=== PATIENT | female | born 1975 | race Caucasian/White ===

== ENCOUNTER 2017-12-02 23:06 | Inpatient (IN) | payer OTHER ==
[~2017-12-02] VITALS: Ht 165.1 cm; Wt 110.7 kg
[~2017-12-02 23:06] MED LIST: ASPI325T8 PO; CARV3.122 PO; CLOP75TA PO; OMEP40CA5 PO; PARO40TA3 PO; QUET400T4 PO
--- NOTE | 2017-12-02 23:44 | EKG ---
[address] [address] Test Date: 2017-12-02 Test Time: 23:41:47 Pat Name: TRA CARBAJAL Department: Room: Gender: F Personnel Monitor: : 1975 Requested By: BALJINDER GOODE Order Number: [id number] Reading MD: Elieser Morales MD Measurements Intervals [place] Rate: 78 P: 48 [place]: 134 QRS: 31 QRSD: 88 T: 58 QT: 358 QTc: 411 Interpretive Statements SINUS RHYTHM Electronically Signed On 12-05-2017 12:07:39 CDT by Elieser Morales MD
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
[2017-12-03] MEDS ORDERED: IV NORMAL SALINE 1,000ML 1,000 ML IV ONE
[2017-12-03] MEDS ORDERED: FAMOTIDINE 20 MG/2 ML VIAL IVP ONE
[2017-12-03] MEDS ORDERED: ONDANSETRON PF 4 MG/2 ML VIAL. IV ONE
[2017-12-03] MEDS ORDERED: DEXAMETHASONE SOD PHOS 10 MG/ML VIAL IV ONE (00:45)
[2017-12-03 00:53] LABS: BARBITURATES NEG (NEG); BENZODIAZEPINES POS (NEG); CANNABINOIDS POS (NEG); COCAINE NEG (NEG); METHADONE NEG (NEG); OPIATES NEG (NEG); PHENCYCLIDINE NEG (NEG)
[2017-12-03 00:54] LABS: BASO # 0.1 x10^3/uL (0.0-0.2); BASO % 1 % (0-3); EOS # 0.2 x10^3/uL (0.0-0.7); EOS % 2 % (0-3); HEMATOCRIT 45.1 % (36.0-47.0); HEMOGLOBIN 15.3 g/dL (12.0-15.5); LYMPH # 4.4 x10^3/uL (1.0-4.8); LYMPH % 38 % (24-48); MEAN CORPUSCULAR HEMOGLOBIN 30 pg (25-35); MEAN CORPUSCULAR HGB CONC 34 g/dL (31-37); MEAN CORPUSCULAR VOLUME 88 fL (79-100); MONO # 0.9 x10^3/uL (0.0-1.1); MONO % 8 % (0-9); NEUT # 5.8 x10^3uL (1.8-7.7); NEUT % 51 % (31-73); PLATELET COUNT 420 x10^3/uL (140-400); RED BLOOD COUNT 5.15 x10^6/uL (3.50-5.40); RED CELL DISTRIBUTION WIDTH 14.5 % (11.5-14.5); WHITE BLOOD COUNT 11.4 x10^3/uL (4.0-11.0)
[2017-12-03] MEDS ORDERED: NICOTINE 21MG PATCH. TD ONE (01:00)
[2017-12-03 01:06] LABS: AMPHETAMINE/METHAMPHETAMINE NEG (NEG)
[2017-12-03 01:10] LABS: ACETAMIN < 2 mcg/mL (10-30); ETHANOL < 10 mg/dL (0-10); SALIC 5.6 mg/dL (2.8-20.0)
[2017-12-03 01:11] LABS: BILIRUBIN,URINE NEG (NEG); CLARITY,URINE CLEAR; COLOR,URINE STRAW; GLUCOSE,URINE NEG (NEG); NITRITE,URINE NEG (NEG); UROBILINOGEN,URINE 0.2 mg/dL (0.2 mg/dL)
[2017-12-03 01:12] LABS: BACTERIA,URINE FEW /HPF (0-FEW); RBC,URINE RARE /HPF (0-2); SQUAMOUS EPITHELIAL CELL,UR FEW /LPF
[2017-12-03 01:13] LABS: ALBUMIN 3.6 g/dL (3.4-5.0); ALBUMIN/GLOBULIN RATIO 1.1 (1.0-1.7); CALCIUM 9.4 mg/dL (8.5-10.1); CREATININE 0.7 mg/dL (0.6-1.0); GFR 90.9; MAGNESIUM 1.9 mg/dL (1.8-2.4); POTASSIUM 4.2 mmol/L (3.5-5.1); TOTAL BILIRUBIN 0.1 mg/dL (0.2-1.0); TOTAL PROTEIN 6.8 g/dL (6.4-8.2)
[2017-12-03] MEDS ORDERED: DIVA500T2 PO (03:12)
[2017-12-03] MEDS ORDERED: SERT100T PO (03:12)
[2017-12-03] MEDS ORDERED: BUSP30TA PO (03:12)
[2017-12-03] MEDS ORDERED: ONDANSETRON PF 4 MG/2 ML VIAL. IV PRN ×2 (06:00→13:45)
[2017-12-03] MEDS ORDERED: ACETAMINOPHEN 325 MG TABLET PO PRN (06:00)
[2017-12-03] MEDS: HALOPERIDOL LACT 5 MG/ML VIAL. IVP PRN ×3 (08:42→18:37)
[2017-12-03 09:33] VITALS: BP 147/66
[2017-12-03 14:16] VITALS: BP 117/76
[2017-12-03] MEDS: MORPHINE SULFATE 4 MG/ML DISP.SYRIN. IV PRN ×2 (14:24→18:25)
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
[2017-12-03] MEDS: NICOTINE 21MG PATCH. TD SCH (15:00)
[2017-12-03 19:24] VITALS: BP 100/61
[2017-12-03] MEDS: busPIRone 15 MG TABLET. PO SCH (20:42)
[2017-12-03] MEDS: DIVALPROEX ER 500 MG TAB.ER.24H PO SCH (20:43)
--- NOTE | 2017-12-03 21:03 | PDOC ---
Exam Note: Jonathan Note: Please also refer to the separate dictated note~for this date of service dictated separately.~Patient seen individually. Discussed the patient with Nursing staff reviewed the chart.~Reviewed interim history and current functioning. Reviewed vital signs,~Labs/ Radiology~and current medications noted below. Continue current treatment with the changes noted in the dictated addendum note Assessment: Vital Signs: Vital Signs Date Time Temp Pulse Resp B/P (MAP) Pulse Ox O2 Delivery O2 Flow Rate FiO2 12/03/17 19:24 98.2 73 18 100/61 (74) 97 Room Air I&O Intake and Output 12/03/17 07:00 Intake Total 1000 ml Balance 1000 ml IV Total 1000 ml Labs: Laboratory Tests Test 12/02/17 23:59 White Blood Count 11.4 x10^3/uL (4.0-11.0) H Red Blood Count 5.15 x10^6/uL (3.50-5.40) Hemoglobin 15.3 g/dL (12.0-15.5) Hematocrit 45.1 % (36.0-47.0) Mean Corpuscular Volume 88 fL (79-100) Mean Corpuscular Hemoglobin 30 pg (25-35) Mean Corpuscular Hemoglobin Concent 34 g/dL (31-37) Red Cell Distribution Width 14.5 % (11.5-14.5) Platelet Count 420 x10^3/uL (140-400) H Neutrophils (%) (Auto) 51 % (31-73) Lymphocytes (%) (Auto) 38 % (24-48) Monocytes (%) (Auto) 8 % (0-9) Eosinophils (%) (Auto) 2 % (0-3) Basophils (%) (Auto) 1 % (0-3) Neutrophils # (Auto) 5.8 x10^3uL (1.8-7.7) Lymphocytes # (Auto) 4.4 x10^3/uL (1.0-4.8) Monocytes # (Auto) 0.9 x10^3/uL (0.0-1.1) Eosinophils # (Auto) 0.2 x10^3/uL (0.0-0.7) Basophils # (Auto) 0.1 x10^3/uL (0.0-0.2) Urine Collection Type Unknown Urine Color Straw Urine Clarity Clear Urine pH 6.0 Urine Specific [place] 1.015 Urine Protein Neg (NEG-TRACE) Urine Glucose (UA) Neg mg/dL (NEG) Urine Ketones (Stick) Neg mg/dL (NEG) Urine Blood Neg (NEG) Urine Nitrite Neg (NEG) Urine Bilirubin Neg (NEG) Urine Urobilinogen Dipstick 0.2 mg/dL (0.2 mg/dL) Urine Leukocyte Esterase Neg (NEG) Urine RBC Rare /HPF (0-2) Urine WBC 1-4 /HPF (0-4) Urine Squamous Epithelial Cells Few /LPF Urine Transitional Epithelial Cells Occ /LPF Urine Renal Epithelial Cells Occ /LPF Urine Bacteria Few /HPF (0-FEW) Sodium Level 139 mmol/L (136-145) Potassium Level 4.2 mmol/L (3.5-5.1) Chloride Level 103 mmol/L (98-107) Carbon Dioxide Level 29 mmol/L (21-32) Anion Gap 7 (6-14) Blood Urea Nitrogen 18 mg/dL (7-20) Creatinine 0.7 mg/dL (0.6-1.0) Estimated GFR (Cockcroft-Gault) 90.9 BUN/Creatinine Ratio 26 (6-20) H Glucose Level 90 mg/dL (70-99) Calcium Level 9.4 mg/dL (8.5-10.1) Magnesium Level 1.9 mg/dL (1.8-2.4) Total Bilirubin 0.1 mg/dL (0.2-1.0) L Aspartate Amino Transferase (AST) 27 U/L (15-37) Alanine Aminotransferase (ALT) 29 U/L (14-59) Alkaline Phosphatase 93 U/L (46-116) Total Protein 6.8 g/dL (6.4-8.2) Albumin 3.6 g/dL (3.4-5.0) Albumin/Globulin Ratio 1.1 (1.0-1.7) Salicylates Level 5.6 mg/dL (2.8-20.0) Salicylate Last Dose Date 02/11/11 Salicylate Last Dose Time 1111 Urine Opiates Screen Neg (NEG) Urine Methadone Screen Neg (NEG) Acetaminophen Level < 2 mcg/mL (10-30) L Acetaminophen Last Dose Date 02/11/11 Acetaminophen Last Dose Time 1111 Urine Barbiturates Neg (NEG) Urine Phencyclidine Screen Neg (NEG) Urine Amphetamine/Methamphetamine Neg (NEG) Urine Benzodiazepines Screen Pos (NEG) Urine Cocaine Screen Neg (NEG) Urine Cannabinoids Screen Pos (NEG) Ethyl Alcohol Level < 10 mg/dL (0-10) Urine Ethyl Alcohol Neg (NEG) Current Medications: Meds: Current Medications Ondansetron HCl (Zofran) 4 mg 1X ONCE IV Last administered on 12/03/17at 00:37; Start 12/03/17 at 00:00; Stop 12/03/17 at 00:01; Status DC Famotidine (Pepcid Vial) 20 mg 1X ONCE IVP Last administered on 12/03/17at 00:36 ; Start 12/03/17 at 00:00; Stop 12/03/17 at 00:01; Status DC Sodium Chloride 1,000 ml @ 1,000 mls/hr 1X ONCE IV Last administered on at 00:36; Start 12/03/17 at 00:00; Stop 12/03/17 at 00:59; Status DC Dexamethasone Sodium Phosphate (Decadron) 10 mg 1X ONCE IV Last administered on 12/03/17at 00:36; Start 12/03/17 at 00:45; Stop 12/03/17 at 00:46; Status DC Nicotine (Nicoderm Cq 21mg) 1 patch 1X ONCE TD Last administered on 12/03/17at 00:46; Start 12/03/17 at 01:00; Stop 12/03/17 at 01:01; Status DC Ondansetron HCl (Zofran) 4 mg PRN Q4HRS PRN IV NAUSEA/VOMITING Last administered on 12/03/17at 14:23; Start 12/03/17 at 06:00; Stop 12/04/17 at 05:59 Acetaminophen (Tylenol) 650 mg PRN Q4HRS PRN PO FEVER; Start 12/03/17 at 06:00; Stop 12/04/17 at 05:59 Haloperidol Lactate (Haldol) 5 mg PRN Q4HRS PRN IVP AGITATION Last administered on 12/03/17at 18:37; Start 12/03/17 at 08:30 Morphine Sulfate (Morphine 4mg Syringe) 4 mg PRN Q4HRS PRN IV PAIN Last administered on 12/03/17at 18:25; Start 12/03/17 at 13:45 Ondansetron HCl (Zofran) 4 mg PRN Q4HRS PRN IV NAUSEA/VOMITING; Start 12/03/17 at 13:45 Buspirone HCl (Buspar) 15 mg BID PO Last administered on 12/03/17at 20:42; Start 12/03/17 at 21:00 Divalproex Sodium (Depakote Er) 500 mg BID PO Last administered on 12/03/17at 20: 43; Start 12/03/17 at 21:00 Divalproex Sodium (Depakote Er) 250 mg DAILY@1200 PO ; Start 12/04/17 at 12:00 Nicotine (Nicoderm Cq 21mg) 1 patch DAILY TD Last administered on 12/03/17at 15: 00; Start 12/03/17 at 15:00 Active Scripts Active Reported Zoloft (Sertraline Hcl) 100 Mg Tablet 100 Mg PO DAILY Depakote (Divalproex Sodium) 500 Mg Tablet.dr 250 Mg PO Buspirone Hcl 30 Mg Tablet 25 Mg PO Carvedilol 3.125 Mg Tablet 3.125 Mg PO BIDWMEALS Paroxetine Hcl 40 Mg Tablet 40 Mg PO DAILY Omeprazole 40 Mg Capsule.dr 40 Mg PO Seroquel (Quetiapine Fumarate) 400 Mg Tablet 800 Mg PO BID Aspirin 325 Mg Tablet 325 Mg PO DAILY Clopidogrel (Clopidogrel Bisulfate) 75 Mg Tablet 75 Mg PO DAILY I have reviewed the current psychotropics carefully including drug interactions. Risk benefit ratio favors no change other than as noted in my dictated progress note. Diagnosis: Problems: (1) Major depressive disorder, recurrent episode (2) Post traumatic stress disorder SHRUTI AZUL MD Dec 03, 2017 21:03
[2017-12-03] MEDS: QUEtiapine 100 MG TABLET. PO SCH (21:50)
[2017-12-03 22:04] VITALS: BP 92/58
--- NOTE | 2017-12-04 01:09 | CONS ---
DATE OF CONSULTATION: 12/03/2017 PSYCHIATRIC CONSULTATION This note covers elements not covered in my initial note of 12/03/2017. IDENTIFYING DATA: The patient is a 42-year-old female seen in bed 124, [facility], for a psychiatric consult requested by Dr. Calvert after the patient was admitted via the Emergency Room with opiate withdrawal symptoms, wanting either methadone or Suboxone and had made suicidal statements including a plan to lock herself in a car and inhale the exhaust fumes. She additionally has had a significant past history of suicide attempts, once by hanging last year following which she was at [facility] and 2 years ago by an overdose on medications. She has been treated for diagnosis of bipolar disorder, PTSD, and dissociative disorder at the [facility] in [place]. Given all of this, she had a tele psychiatry consult that recommended inpatient psychiatric hospitalization, but no beds were available and she was admitted to the medical floor for observation while awaiting placement for inpatient psychiatric stay. CHIEF COMPLAINT: "I don't need to go to the hospital. I had talked about suicide when I came in, but I have no suicidal ideation at this time. I have just moved into the [place] in my own apartment to be close to my mother. My mother has narcissistic personality disorder, but "I will work things out." HISTORY OF PRESENT ILLNESS: Reportedly, the patient has been having a 2-year history of chronic right foot pain secondary to a prior fracture. She is scheduled to have surgery on 12/11/2017. She was taking opiates for the pain, Percocet 3 times a day for more than a month and then stopped them about 3 days ago. Since then, she has had what appeared to be opiate withdrawal symptoms including nausea, vomiting, and diarrhea. She was unable to take her psychotropic medications, which include Zoloft 100 mg a day, Seroquel 400 mg a day, Depakote ER 500 mg twice a day, BuSpar 15 mg twice a day. She states that she was extremely exhausted with all of the above and the opiate withdrawal symptoms, overwhelmed and consequently suicidal and came to the Emergency Room. She does have a history of mood swings. She denies current active suicidal ideation. PAST PSYCHIATRIC HISTORY: The patient sees Julianna Haney Ph.D. in psychotherapy at the [place] [facility] and goes to [facility] in [place] to see Kiki for her psychotropic medications. Since she fails, she was not willing to see Sohan Alejandra APRN at the [facility]. DRUG ALLERGIES: TORADOL, STATINS. CURRENT PSYCHOTROPICS: As noted above. FAMILY HISTORY: The patient states that she has 2 brothers, both have PTSD and dissociative personality disorder. Her mother is alive at 67. SOCIAL HISTORY: The patient is x 2. She has a son 27 years old and daughter, 21. She smokes a pack a day, drinks alcohol occasionally, uses marijuana. Her urine drug screen was positive for cannabinoids. She is currently disabled. MENTAL STATUS EXAMINATION: The patient was seen individually evening of 12/03/2017. She is reasonably oriented. Eye contact is good. Psychomotor activity is normal. Speech is coherent. Thought process is goal directed. She is able to give me a coherent history. Mood appears somewhat anxious. Affect is labile, mood congruent. She denies active suicidal or homicidal ideation. No clear psychotic symptoms. Attention span is short. IMPRESSION: Probable bipolar 1 disorder, mixed episode; history of major depressive disorder; anxiety disorder, unspecified; opiate withdrawal, chronic pain. Rest is as noted above. RECOMMENDATION: From a psychiatric standpoint, I believe the plan is to transfer her to inpatient psychiatric care for stabilization once she is medically stable. At this point, she is unwilling to do this. I would defer to the [facility] screen nurse since that she is a known patient at the [facility] for further disposition plans. She states that she has been on a total of 1000 mg Seroquel in the past, currently taking 400 mg a day and we will restart that together with Zoloft 100 mg a day. Maintain the Depakote at current dosage and BuSpar. Check a valproic acid level in the morning. Dr. Calvert, thank you for the opportunity to participate in your patient's care. We will follow up with you. SHRUTI AZUL MD DR: ANJELICA/maria r JOB#: [id number] / [id number]
[2017-12-04 03:17] VITALS: BP 107/67
[2017-12-04 07:27] VITALS: BP 104/70
[2017-12-04 07:50] LABS: VAL ACID 18 mcg/mL (50-100)
[2017-12-04] MEDS: DIVALPROEX ER 500 MG TAB.ER.24H PO SCH ×2 (08:58→20:45)
[2017-12-04] MEDS: NICOTINE 21MG PATCH. TD SCH (08:58)
[2017-12-04] MEDS: busPIRone 15 MG TABLET. PO SCH ×2 (08:58→20:46)
[2017-12-04] MEDS: SERTRALINE 100 MG TABLET. PO SCH (08:59)
[2017-12-04] MEDS: MORPHINE SULFATE 4 MG/ML DISP.SYRIN. IV PRN ×2 (09:01→14:50)
[2017-12-04 10:42] VITALS: BP 99/64
[2017-12-04 11:22] LABS: ALBUMIN/GLOBULIN RATIO 0.9 (1.0-1.7); CALCIUM 8.7 mg/dL (8.5-10.1); CREATININE 0.7 mg/dL (0.6-1.0); GFR 90.9; POTASSIUM 3.8 mmol/L (3.5-5.1); TOTAL BILIRUBIN 0.1 mg/dL (0.2-1.0); TOTAL PROTEIN 6.2 g/dL (6.4-8.2)
[2017-12-04 11:28] LABS: HEMATOCRIT 41.7 % (36.0-47.0); HEMOGLOBIN 13.9 g/dL (12.0-15.5); RED BLOOD COUNT 4.77 x10^6/uL (3.50-5.40); WHITE BLOOD COUNT 12.3 x10^3/uL (4.0-11.0)
--- NOTE | 2017-12-04 11:39 | PN ---
DATE: 12/03/2017 SUBJECTIVE: The patient is resting flat, sleeping comfortably, in no apparent distress. The nursing staff stated that she had an uneventful night. She has not made any remarks, took pain medication only once yesterday. She was seen by Dr. Aguust, who put her back on her Seroquel and increased her Zoloft to 100 mg and we maintained her divalproex and buspirone as before. PHYSICAL EXAMINATION: GENERAL: When I examined her this morning, she looked well and was clearly in no apparent respiratory distress. No pallor, jaundice, cyanosis, or thyromegaly. No jugular venous distension. No lower limb edema. VITAL SIGNS: Her heart rate was 79, blood pressure was 99/64, temperature was 97.9, respiratory rate was 18 and oxygen saturation was 99%. HEAD, EYES, EARS, NOSE AND THROAT: Showed normocephalic, atraumatic. NECK: Supple. HEART: Showed normal first and second sounds. No gallop, rub or murmur. CHEST: Clear to auscultation. No crepitation or rhonchi. ABDOMEN: Distended, soft, nontender. No guarding or rigidity. No organomegaly. All hernial orifice intact. Bowel sounds normal. NEUROLOGIC: She is sleepy, but arousable. All cranial nerves intact. She moves extremities without difficulty. Her intake over the last 24 hours was 1440, no output was recorded. LABORATORY DATA: Her most recent lab work showed a white cell count of 11,400, hemoglobin 15, hematocrit 45, MCV 88 and platelet count of 120,000. Her serum sodium was 139, potassium 4.2, chloride 103, bicarbonate 29, anion gap of 7, BUN 18, creatinine 0.7, estimated GFR was 91 mL per minute. Her glucose was 90, calcium was 9.4, magnesium was 1.9. Total bilirubin, AST, ALT, alkaline phosphatase were normal. Total protein was 6.8, albumin was 3.6. Her toxicology screen was positive for benzodiazepine and cannabinoids. ASSESSMENT: Probable bipolar type 1 disorder with mixed episode, history of major depressive disorder, anxiety. The patient made remarks regarding suicidal ideation. I have explained to the patient that the [facility] recommended that involuntary inpatient treatment and she can leave the hospital. I have no authority to keep her, but will definitely contact the police department to inform them about her departure. Meanwhile, we will check her lab work and also another urinalysis for possible urinary tract infection. EB VANN MD DR: PRINCESS/maria r JOB#: [id number] / [id number]
[2017-12-04] MEDS: DIVALPROEX ER 250 MG TAB.ER.24H. PO SCH (13:37)
[2017-12-04 13:56] VITALS: BP 107/71
[2017-12-04 14:01] LABS: BILIRUBIN,URINE NEG (NEG); CLARITY,URINE CLOUDY; COLOR,URINE YELLOW; GLUCOSE,URINE NEG (NEG); NITRITE,URINE POS (NEG); UROBILINOGEN,URINE 0.2 mg/dL (0.2 mg/dL)
[2017-12-04 14:02] LABS: BACTERIA,URINE MANY /HPF (0-FEW); SQUAMOUS EPITHELIAL CELL,UR MOD /LPF; WBC,URINE 20-40 /HPF (0-4)
[2017-12-04] MEDS: oxyCODONE/APAP 5/325 1 TAB TABLET PO PRN (18:28)
[2017-12-04 20:00] VITALS: BP 131/77
--- NOTE | 2017-12-04 20:29 | PDOC ---
Exam Note: Jonathan Note: Please also refer to the separate dictated note~for this date of service dictated separately.~Patient seen individually. Discussed the patient with Nursing staff reviewed the chart.~Reviewed interim history and current functioning. Reviewed vital signs,~Labs/ Radiology~and current medications noted below. Continue current treatment with the changes noted in the dictated addendum note Assessment: Vital Signs: Vital Signs Date Time Temp Pulse Resp B/P (MAP) Pulse Ox O2 Delivery O2 Flow Rate FiO2 12/04/17 18:28 20 97 12/04/17 14:50 Room Air 12/04/17 13:56 98.6 66 107/71 (83) I&O Intake and Output 12/04/17 07:00 Intake Total 1440 ml Output Total 1 ml Balance 1439 ml Intake Oral 1440 ml Output Urine Total 1 ml # Voids 1 Labs: Laboratory Tests Test 12/04/17 07:28 12/04/17 13:30 White Blood Count 12.3 x10^3/uL (4.0-11.0) H Red Blood Count 4.77 x10^6/uL (3.50-5.40) Hemoglobin 13.9 g/dL (12.0-15.5) Hematocrit 41.7 % (36.0-47.0) Mean Corpuscular Volume 88 fL (79-100) Mean Corpuscular Hemoglobin 29 pg (25-35) Mean Corpuscular Hemoglobin Concent 33 g/dL (31-37) Red Cell Distribution Width 14.0 % (11.5-14.5) Platelet Count 363 x10^3/uL (140-400) Sodium Level 142 mmol/L (136-145) Potassium Level 3.8 mmol/L (3.5-5.1) Chloride Level 108 mmol/L (98-107) H Carbon Dioxide Level 28 mmol/L (21-32) Anion Gap 6 (6-14) Blood Urea Nitrogen 11 mg/dL (7-20) Creatinine 0.7 mg/dL (0.6-1.0) Estimated GFR (Cockcroft-Gault) 90.9 BUN/Creatinine Ratio 16 (6-20) Glucose Level 85 mg/dL (70-99) Calcium Level 8.7 mg/dL (8.5-10.1) Total Bilirubin 0.1 mg/dL (0.2-1.0) L Aspartate Amino Transferase (AST) 15 U/L (15-37) Alanine Aminotransferase (ALT) 23 U/L (14-59) Alkaline Phosphatase 64 U/L (46-116) Total Protein 6.2 g/dL (6.4-8.2) L Albumin 3.0 g/dL (3.4-5.0) L Albumin/Globulin Ratio 0.9 (1.0-1.7) L Valproic Acid Level 18 mcg/mL (50-100) L Valproic Acid Last Dose Date 12/03/17 Valproic Acid Last Dose Time 2100 Urine Collection Type Unknown Urine Color Yellow Urine Clarity Cloudy Urine pH 6.0 Urine Specific [place] 1.025 Urine Protein Neg (NEG-TRACE) Urine Glucose (UA) Neg mg/dL (NEG) Urine Ketones (Stick) Neg mg/dL (NEG) Urine Blood Neg (NEG) Urine Nitrite Pos (NEG) Urine Bilirubin Neg (NEG) Urine Urobilinogen Dipstick 0.2 mg/dL (0.2 mg/dL) Urine Leukocyte Esterase Trace (NEG) Urine RBC 1-2 /HPF (0-2) Urine WBC 20-40 /HPF (0-4) Urine Squamous Epithelial Cells Mod /LPF Urine Bacteria Many /HPF (0-FEW) Urine Mucus Slight /LPF Current Medications: Meds: Current Medications Ondansetron HCl (Zofran) 4 mg 1X ONCE IV Last administered on 12/03/17at 00:37; Start 12/03/17 at 00:00; Stop 12/03/17 at 00:01; Status DC Famotidine (Pepcid Vial) 20 mg 1X ONCE IVP Last administered on 12/03/17at 00:36 ; Start 12/03/17 at 00:00; Stop 12/03/17 at 00:01; Status DC Sodium Chloride 1,000 ml @ 1,000 mls/hr 1X ONCE IV Last administered on at 00:36; Start 12/03/17 at 00:00; Stop 12/03/17 at 00:59; Status DC Dexamethasone Sodium Phosphate (Decadron) 10 mg 1X ONCE IV Last administered on 12/03/17at 00:36; Start 12/03/17 at 00:45; Stop 12/03/17 at 00:46; Status DC Nicotine (Nicoderm Cq 21mg) 1 patch 1X ONCE TD Last administered on 12/03/17at 00:46; Start 12/03/17 at 01:00; Stop 12/03/17 at 01:01; Status DC Ondansetron HCl (Zofran) 4 mg PRN Q4HRS PRN IV NAUSEA/VOMITING Last administered on 12/03/17at 14:23; Start 12/03/17 at 06:00; Stop 12/04/17 at 05:59; Status DC Acetaminophen (Tylenol) 650 mg PRN Q4HRS PRN PO FEVER; Start 12/03/17 at 06:00; Stop 12/04/17 at 05:59; Status DC Haloperidol Lactate (Haldol) 5 mg PRN Q4HRS PRN IVP AGITATION Last administered on 12/03/17at 18:37; Start 12/03/17 at 08:30 Morphine Sulfate (Morphine 4mg Syringe) 4 mg PRN Q4HRS PRN IV PAIN Last administered on 12/04/17at 14:50; Start 12/03/17 at 13:45 Ondansetron HCl (Zofran) 4 mg PRN Q4HRS PRN IV NAUSEA/VOMITING; Start 12/03/17 at 13:45 Buspirone HCl (Buspar) 15 mg BID PO Last administered on 12/04/17at 08:58; Start 12/03/17 at 21:00 Divalproex Sodium (Depakote Er) 500 mg BID PO Last administered on 12/04/17at 08: 58; Start 12/03/17 at 21:00 Divalproex Sodium (Depakote Er) 250 mg DAILY@1200 PO Last administered on at 13:37; Start 12/04/17 at 12:00 Nicotine (Nicoderm Cq 21mg) 1 patch DAILY TD Last administered on 12/04/17at 08: 58; Start 12/03/17 at 15:00 Quetiapine Fumarate (SEROquel) 400 mg QHS PO ; Start 12/04/17 at 21:00; Stop 12/04 at 21:00; Status DC Sertraline HCl (Zoloft) 100 mg DAILY PO Last administered on 12/04/17at 08:59; Start 12/04/17 at 09:00 Quetiapine Fumarate (SEROquel) 400 mg QHS PO Last administered on 12/03/17at 21: 50; Start 12/03/17 at 22:00 Oxycodone/ Acetaminophen (Percocet 5/325) 1 tab PRN Q4HRS PRN PO MODERATE PAIN Last administered on 12/04/17at 18:28; Start 12/04/17 at 18:00 Active Scripts Active Reported Zoloft (Sertraline Hcl) 100 Mg Tablet 100 Mg PO DAILY Depakote (Divalproex Sodium) 500 Mg Tablet.dr 250 Mg PO Buspirone Hcl 30 Mg Tablet 25 Mg PO Carvedilol 3.125 Mg Tablet 3.125 Mg PO BIDWMEALS Paroxetine Hcl 40 Mg Tablet 40 Mg PO DAILY Omeprazole 40 Mg Capsule.dr 40 Mg PO Seroquel (Quetiapine Fumarate) 400 Mg Tablet 800 Mg PO BID Aspirin 325 Mg Tablet 325 Mg PO DAILY Clopidogrel (Clopidogrel Bisulfate) 75 Mg Tablet 75 Mg PO DAILY I have reviewed the current psychotropics carefully including drug interactions. Risk benefit ratio favors no change other than as noted in my dictated progress note. Diagnosis: Problems: (1) Major depressive disorder, recurrent episode (2) Post traumatic stress disorder (3) Leg pain SHRUTI AZUL MD Dec 04, 2017 20:29
[2017-12-04] MEDS: QUEtiapine 100 MG TABLET. PO SCH (20:46)
[2017-12-04] MEDS ORDERED: QUEtiapine 100 MG TABLET. PO SCH (21:00)
[2017-12-05 05:31] VITALS: BP 110/68
[2017-12-05] MEDS: oxyCODONE/APAP 5/325 1 TAB TABLET PO PRN ×2 (08:14→13:54)
[2017-12-05] MEDS: SERTRALINE 100 MG TABLET. PO SCH (09:00)
[2017-12-05] MEDS: busPIRone 15 MG TABLET. PO SCH (09:00)
[2017-12-05] MEDS: DIVALPROEX ER 500 MG TAB.ER.24H PO SCH (09:00)
[2017-12-05] MEDS: NICOTINE 21MG PATCH. TD SCH (09:05)
[2017-12-05] MEDS: HALOPERIDOL LACT 5 MG/ML VIAL. IVP PRN (09:35)
[2017-12-05] MEDS: MORPHINE SULFATE 4 MG/ML DISP.SYRIN. IV PRN ×2 (10:36→15:47)
[2017-12-05] MEDS: DIVALPROEX ER 250 MG TAB.ER.24H. PO SCH (12:12)
[2017-12-05 16:50] VITALS: BP 115/82
--- NOTE | 2017-12-06 01:05 | PN ---
DATE: 12/05/2017 SUBJECTIVE: The patient is sitting comfortably in her chair in no apparent respiratory distress. She is awake, alert, continued to complain of being anxious, restless, at times agitated, was given Haldol and also complaining of pain in her left foot, for which she received her Percocet and morphine. OBJECTIVE: GENERAL: When I saw her, she looked well and was clearly in no apparent respiratory distress. No pallor, jaundice, cyanosis, or thyromegaly. No jugular venous distension. No limb edema. VITAL SIGNS: Her heart rate was 56, blood pressure was 110/68, temperature was 98, respiratory rate was 18, and oxygen saturation was 96%. HEAD, EYES, EARS, NOSE, AND THROAT: Normocephalic, atraumatic. NECK: Supple. HEART: Showed normal first and second heart sounds. No gallop, rub, or murmur. CHEST: Clear to auscultation. No crepitation or rhonchi. ABDOMEN: Distended, soft, nontender. No guarding or rigidity. No organomegaly. All hernial orifice intact. Bowel sounds normal. NEUROLOGIC: She was awake, alert, responding appropriately. She moves all extremities without difficulty. Her intake was 1414, output was recorded. LABORATORY DATA: Her lab work as of yesterday showed a white cell count 12,300, hemoglobin 13.9, hematocrit was 42, MCV 88, and platelet count 363,000. Her chemistry showed a serum sodium 142, potassium 3.8, chloride 108, bicarbonate 28, anion gap of 6, BUN 11, creatinine 0.7. Her estimated GFR was 91 mL per minute. Her glucose 85, calcium was 8.7. Total bilirubin, AST, ALT, alkaline phosphatase, total protein 6.2, albumin 3. Toxic screen was essentially positive for cannabinoids and benzodiazepine. ASSESSMENT: 1. Bipolar type 1 disorder, mixed episode. 2. History of major depressive disorder, anxiety. 3. The patient made remarks regarding suicidal ideation. She was evaluated, given the fact that she has made 2 suicidal attempts before, the [facility] recommended involuntary inpatient treatment. I explained to her that she can leave the hospital, but the moment she gets out, she will contact the police department to inform them about her departure. We did send urine for culture and sensitivity. Her urinalysis showed that the patient was positive for nitrite and mild leukocyte esterase. She has 1-2 rbc's, 20-40 wbc's, and many bacteria. The urine culture is still pending at the time of this patient. EB VANN MD DR: PRINCESS/maria r JOB#: [id number] / [id number]
--- NOTE | 2017-12-06 02:58 | PN ---
DATE: 12/04/2017 This is a late entry 12/04/2017 covers elements not covered in my initial note 12/04/2017. SUBJECTIVE: Discussed with nursing staff in the evening. The patient has had a better day. She denied suicidal ideation, but is being followed [facility] who known her longitudinally for a long period of time and arranging Psychiatric inpatient hospitalization for stabilization. She is back on her Zoloft, Seroquel, BuSpar, and Depakote. No active suicidal or homicidal ideation. Somewhat withdrawn, but otherwise well oriented. Intellect average. Insight fair. IMPRESSION: Unchanged from initial note. PLAN: No change from a psychiatric standpoint and will defer to the [facility] for further disposition plans. MAN Katarzyna AZUL MD DR: ANJELICA/maria r JOB#: [id number] / [id number] PROGRESS NOTE
--- NOTE | 2017-12-06 14:48 | DS ---
DATE OF DISCHARGE: 12/05/2017 HISTORY OF PRESENT ILLNESS: The patient is a 42-year-old female patient, who was admitted with suicidal ideation. She apparently has pain in her left ankle joint for which she was scheduled for surgery on 12/11/2017. She stated her mother was giving her opiates in the form of Percocet 3 times a day for almost a month and she stopped taking them about a week ago, and over the last 3 days, she has been having nausea, vomiting and diarrhea. She was unable to take any of her depression medications and reported that she is having thoughts of suicidal ideation, stated that she has thoughts to kill herself having been around. She did attempt to kill herself twice, for 1 by overdosing. She spent about 3 weeks at [facility] and at that time, she attempted to hang herself. She claimed that she has been in a wheelchair for a long time after she broke her foot and then she was in a walking boot and knee cast for a total of almost [address] Aleman was treating her for free; however, the [facility] refused to allow her to have operation for free. Finally, she got her insurance and she would go for surgery; unfortunately, because of her suicidal ideation, she was evaluated by the [facility] and they recommended admitting her involuntarily for admission to inpatient psychiatric stabilization at [facility] and has been here for almost 3 days, and they did evaluate her again and they basically recommended that the patient can be safe for discharge home and she was discharged home to continue on all her medication and was given a prescription for Percocet to continue until she gets her surgery on 12/11/2017. PHYSICAL EXAMINATION: GENERAL: When I examined her yesterday, she looked well and was clearly in no apparent respiratory distress. No pallor, jaundice, cyanosis, or thyromegaly. No jugular venous distension. No lower limb edema. VITAL SIGNS: Her heart rate was 70, blood pressure was 115/82, temperature was 99.2, respiratory rate 20, and oxygen saturation was 93% on room air. HEAD, EYES, EARS, NOSE AND THROAT: Showed normocephalic, atraumatic. NECK: Supple. HEART: Showed normal first and second sounds. No gallop, rub or murmur. CHEST: Clear to auscultation. No crepitation or rhonchi. ABDOMEN: Distended, soft, nontender. No guarding or rigidity. No organomegaly. All hernial orifices intact. Bowel sounds normal. NEUROLOGIC: She was awake, alert, responding appropriately. Cranial nerves intact. EXTREMITIES: She moves extremities without difficulty. She ambulates without assistance or assistive devices. Her intake was 1720, output was 1150. LABORATORY DATA: Her lab work on day of discharge showed a white cell count of 12,300, hemoglobin 14, hematocrit 42, MCV 88 and platelet count 363,000. Her serum sodium 142, potassium 3.8, chloride 108, bicarbonate 28, anion gap of 6, BUN 11, creatinine 0.7, estimated GFR was 91 mL per minute. Her glucose was 85, calcium was 8.7. Total bilirubin, AST, ALT, alkaline phosphatase are normal. Total protein was 6.2, albumin 3. Her urinalysis showed the growth of more than 100,000 colony forming units per mL of Escherichia coli. The sensitivity is still pending at the time of this dictation. Unfortunately, the cultures showed up after the patient was discharged and once we have the sensitivity, we will call her with oral antibiotic. DISCHARGE MEDICATIONS: She was discharged home to continue on following medications: Aspirin 325 mg once a day, carvedilol 3.125 mg twice a day, Plavix 75 mg once a day, omeprazole 40 mg once a day, paroxetine 40 mg once a day, sertraline 100 mg once a day. Her buspirone was increased to 15 mg twice a day and her divalproex was changed to 500 mg twice a day, quetiapine fumarate was increased to 400 mg at bedtime. FINAL DISCHARGE DIAGNOSES: Bipolar type 1 disorder, mixed episode; major depressive disorder; anxiety; suicidal ideation; urinary tract infection with growth of more than 100,000 colony forming units per mL of E. coli. EB VANN MD DR: PRINCESS/maria r JOB#: [id number] / [id number]
== END 2017-12-05 18:30 | disposition home or self-care (01) | DRG 897 ==
LOC: ER 23:06 → 1 SOUTH 12-03 07:51
PROVIDERS: ADMIT Internal Medicine; ATTEND Internal Medicine
DX: F11.23 Opioid dependence with withdrawal (principal); F31.60 Bipolar disorder, current episode mixed, unspecified; R45.851 Suicidal ideations; N39.0 Urinary tract infection, site not specified; Z88.8 Allergy status to other drugs, medicaments and biological substances; B96.20 Unspecified Escherichia coli [E. coli] as the cause of diseases classified elsewhere; E78.5 Hyperlipidemia, unspecified; F12.90 Cannabis use, unspecified, uncomplicated; M25.572 Pain in left ankle and joints of left foot; M79.671 Pain in right foot; F44.9 Dissociative and conversion disorder, unspecified; F17.210 Nicotine dependence, cigarettes, uncomplicated; F43.10 Post-traumatic stress disorder, unspecified; G89.29 Other chronic pain; I25.10 Atherosclerotic heart disease of native coronary artery without angina pectoris; Z95.5 Presence of coronary angioplasty implant and graft; Z87.01 Personal history of pneumonia (recurrent); Z91.5 Personal history of self-harm; I25.2 Old myocardial infarction
CPT/HCPCS: 36415; 80053; 80164; 80307; 81001; 83735; 85025; 85027; 87086; 93005; 96361; 96374; 96375; G0480; G6039; J1100; J1630; J2270; J2405; S0028; 82003; 99285-25; G0479; J7030

== ENCOUNTER 2019-06-07 10:27 | Emergency (ER) | payer MEDICAID, OTHER ==
[~2019-06-07] VITALS: Ht 165.1 cm; Wt 95.5 kg
[~2019-06-07 10:27] MED LIST changes: +BUSP30TA PO; -CARV3.122 PO; +CARV3.1230 PO; +DIVA500T2 PO; +OMEP40CA45 PO; -OMEP40CA5 PO; +SERT100T PO
[2019-06-07] MEDS ORDERED: IV NORMAL SALINE 1,000ML 1,000 ML IV ONE (10:45)
--- NOTE | 2019-06-07 10:55 | PHYS DOC ---
Past History Past Medical History: Anxiety, Bipolar, CAD, Depression, DE, Pneumonia, Other Additional Past Medical Histor: chronic right foot pain Past Surgical History: Other Smoking: Cigarettes Alcohol Use: None Drug Use: Benzodiazepine, Marijuana, Opiates Adult General Chief Complaint Chief Complaint: SYNCOPE HPI HPI Patient is a 44-year-old female with history of bipolar disorder as well as coronary artery disease with PCI stent placement in 2017 presents with syncope. [facility] and had been sitting for a long period time. When she thony from her chair she walked out of the office and felt lightheaded and eventually "passed out". Episode was witnessed by 2 bystanders who did notice some possible shaking She reports the bystanders witnessed her hit her chin. She does not have a history of seizure disorder nor has she had syncope in the past. She does feel that she is been experiencing some symptoms and took one of her when necessary trazodone's earlier this morning as she has been able to sleep recently. Blood pressure was 80s/40s per EMS. She denies any chest pain, palpitations, shortness of breath preceding the syncope. Currently she is asymp tomatic. She denies any history of blood clots, hemoptysis, hormone use, immobilization, recent surgeries, abdominal pain, vision changes or focal weakness. Review of Systems Review of Systems Constitutional: Denies fever or chills Eyes: Denies diplopia, vision change. HENT: Denies nasal congestion or sore throat Respiratory: Denies cough or shortness of breath Cardiovascular: Denies chest pain or palpitations GI: Denies abdominal pain, nausea, or vomiting Musculoskeletal: Denies back pain or joint pain Neurologic: Denies headache, focal weakness or sensory changes; reports syncope Complete systems were reviewed and found to be within normal limits, except as documented in this note. Current Medications Current Medications Current Medications Medications (Trade) Dose Ordered Sig/Manuel Start Time Stop Time Status Last Admin Dose Admin Sodium Chloride 1,000 ml @ 1,000 mls/hr 1X ONCE 06/07/19 10:45 06/07/19 11:44 06/07/19 10:42 1,000 MLS/HR Allergies Allergies Allergies Coded Allergies Type Severity Reaction Last Updated Verified Jctggdg-Ghl-Exi Reductase Inhibitor Allergy Intermediate 12/05/17 Yes ketorolac Allergy Intermediate 12/05/17 Yes Physical Exam Physical Exam Constitutional: Well developed, well nourished, no acute distress, non-toxic appearance HENT: Normocephalic, atraumatic, oropharynx moist without evidence of tongue biting or dental trauma Eyes: PERRL, EOMI, conjunctiva normal, no discharge Neck: Normal range of motion, no tenderness, supple Cardiovascular: Heart rate normal, regular rhythm Lungs & Thorax: Bilateral breath sounds clear to auscultation, no wheezing Abdomen: Soft, no tenderness Extremities: No tenderness, ROM intact, no edema Neurologic: Alert and oriented X 3, normal motor function, normal sensory function, no focal deficits noted, cranial nerves II through XII grossly intact bilaterally, no cerebellar dysmetria noted Psychologic: Affect normal, judgment normal EKG EKG 1039: Normal sinus rhythm with rate of 83. Normal axis. Non-pathologic q waves in lead III. no evidence of ST segment elevation or depression. NM interval normal. Radiology/Procedures Radiology/Procedures [] Course & Med Decision Making Course & Med Decision Making Pertinent Lab studies reviewed. (See chart for details) Patient is a 44-year-old female who presents following syncope at the [facility]. During the time shortly sitting for prolonged period of time when arose to standing and walked out of the office immediately felt lightheaded and eventually had witnessed syncope. She recently began a new prescription for trazodone and had taken that medication a few hours before the event. She denies any chest pain, shortness of breath, palpitations, headache, abdominal pain prior to her syncope. She did strike her chin but on physical examination, there are no signs of trauma, bruising, bleeding, tongue biting or dental trauma. She denies any neck pain and has no pain with cervical range of motion. Although bystanders did express some concern of possible jerking movements, patient has no history of seizure disorder and she is alert and oriented immediately after syncope without postictal period. Per EMS her initial blood pressure was recorded 80s over 40s on scene. The emergency department vital signs are stable, she is alert and oriented and without complaints. Currently I feel that today's syncope is most likely explained by trazodone side effect leading to orthostatic hypotension. However, will workup for additional medical etiologies of syncope. EKG shows normal sinus rhythm with appropriate rate and intervals. No signs of acute ischemia. CBC and CMP unremarkable. No leukocytosis, anemia, or electrolyte disturbances. Troponin, CK, CK-MB all negative at this time. Patient remains asymptomatic at this time. Vital signs stable with blood pressure 10 8/72. Orthostatics positive with increased heart rate and symptomatic lightheadedness. Per EMS, patient was positive for orthostatic testing on scene as well. Patient received 1 L IV fluids with interval improvement of her symptoms. Patient stable for discharge with outpatient follow-up with PCP. Discussed findings and plan with patient, who acknowledges understanding and agreement. Dragon Disclaimer Dragon Disclaimer This electronic medical record was generated, in whole or in part, using a voice recognition dictation system. Departure Departure: Impression: Primary Impression: Orthostatic hypotension Disposition: HOME, SELF-CARE Condition: IMPROVED Referrals: PCP,NO (PCP) Patient Instructions: Orthostatic Hypotension Additional Instructions: Your symptoms might be secondary to some of the medications you currently are taking. Please follow closely with your doctors to see if some adjustments of your medications may be warranted. BALJINDER GOODE DO Jun 07, 2019 10:55
[2019-06-07 11:29] LABS: CREATININE 0.8 mg/dL (0.6-1.0); GFR 77.2
[2019-06-07 11:45] LABS: ALBUMIN 3.5 g/dL (3.4-5.0); ALBUMIN/GLOBULIN RATIO 1.1 (1.0-1.7); MAGNESIUM 2.1 mg/dL (1.8-2.4); TOTAL BILIRUBIN 0.2 mg/dL (0.2-1.0); TOTAL PROTEIN 6.8 g/dL (6.4-8.2)
[2019-06-07 12:15] LABS: BASO # 0.1 x10^3/uL (0.0-0.2); BASO % 1 % (0-3); EOS # 0.1 x10^3/uL (0.0-0.7); EOS % 1 % (0-3); HEMATOCRIT 46.2 % (36.0-47.0); HEMOGLOBIN 15.4 g/dL (12.0-15.5); LYMPH # 2.1 x10^3/uL (1.0-4.8); LYMPH % 27 % (24-48); MEAN CORPUSCULAR HEMOGLOBIN 30 pg (25-35); MEAN CORPUSCULAR HGB CONC 33 g/dL (31-37); MEAN CORPUSCULAR VOLUME 88 fL (79-100); MONO # 0.5 x10^3/uL (0.0-1.1); MONO % 7 % (0-9); NEUT # 5.3 x10^3uL (1.8-7.7); NEUT % 65 % (31-73); PLATELET COUNT 454 x10^3/uL (140-400); RED BLOOD COUNT 5.23 x10^6/uL (3.50-5.40); RED CELL DISTRIBUTION WIDTH 15.3 % (11.5-14.5); WHITE BLOOD COUNT 8.1 x10^3/uL (4.0-11.0)
--- NOTE | 2019-06-07 13:31 | EKG ---
[address] [address] Test Date: 2019-06-07 Test Time: 10:39:37 Pat Name: TRA CARBAJAL Department: Room: Gender: F Deaf/Hard Of Hearing Specialist: : 1975 Requested By: BALJINDER GOODE Order Number: [id number] Reading MD: Measurements Intervals [place] Rate: 83 P: 51 TX: 136 QRS: 46 QRSD: 84 T: 54 QT: 376 QTc: 448 Interpretive Statements SINUS RHYTHM NO SPECIFIC ECG ABNORMALITIES RI6.01 No previous ECG available for comparison
[2019-06-07 13:48] LABS: BILIRUBIN,URINE NEG (NEG); CLARITY,URINE CLEAR; COLOR,URINE YELLOW; GLUCOSE,URINE NEG (NEG); NITRITE,URINE NEG (NEG); RBC,URINE OCC /HPF (0-2); UROBILINOGEN,URINE 0.2 mg/dL (0.2 mg/dL)
[2019-06-07 13:49] LABS: BACTERIA,URINE 0 /HPF (0-FEW); SQUAMOUS EPITHELIAL CELL,UR MOD /LPF
[2019-06-07 14:14] VITALS: BP 112/67
== END 2019-06-07 14:14 | disposition home or self-care (01) ==
LOC: ER 10:27
DX: I95.1 Orthostatic hypotension (principal); F41.9 Anxiety disorder, unspecified; F31.9 Bipolar disorder, unspecified; I25.10 Atherosclerotic heart disease of native coronary artery without angina pectoris; I25.2 Old myocardial infarction; F17.210 Nicotine dependence, cigarettes, uncomplicated; G89.29 Other chronic pain; Z88.8 Allergy status to other drugs, medicaments and biological substances
CPT/HCPCS: 36415; 80053; 81001; 82553; 83735; 84484; 85025; 93005; 96360; 96361; 99284-25; J7030

== ENCOUNTER 2020-07-06 15:31 | Emergency (ER) | payer MEDICAID ==
[~2020-07-06] VITALS: Ht 165.1 cm; Wt 117.0 kg
[2020-07-06] MEDS ORDERED: HYDROcodone/APAP 5/325MG 1 TAB TABLET PO ONE (17:30)
[2020-07-06] MEDS ORDERED: LORazepam 1 MG TABLET PO ONE (17:30)
[2020-07-06] MEDS ORDERED: LORazepam 1 MG TABLET ONE (17:35)
[2020-07-06] MEDS ORDERED: HYDROcodone/APAP 5/325MG 1 TAB TABLET ONE (17:35)
[2020-07-06 18:00] LABS: BASO # 0.1 x10^3/uL (0.0-0.2); BASO % 1 % (0-3); EOS # 0.3 x10^3/uL (0.0-0.7); EOS % 4 % (0-3); HEMATOCRIT 41.8 % (36.0-47.0); HEMOGLOBIN 13.8 g/dL (12.0-15.5); LYMPH # 3.8 x10^3/uL (1.0-4.8); LYMPH % 44 % (24-48); MEAN CORPUSCULAR HEMOGLOBIN 29 pg (25-35); MEAN CORPUSCULAR HGB CONC 33 g/dL (31-37); MEAN CORPUSCULAR VOLUME 88 fL (79-100); MONO # 0.9 x10^3/uL (0.0-1.1); MONO % 11 % (0-9); NEUT # 3.5 x10^3uL (1.8-7.7); NEUT % 41 % (31-73); PLATELET COUNT 377 x10^3/uL (140-400); RED BLOOD COUNT 4.76 x10^6/uL (3.50-5.40); RED CELL DISTRIBUTION WIDTH 14.1 % (11.5-14.5); WHITE BLOOD COUNT 8.6 x10^3/uL (4.0-11.0)
[2020-07-06 18:08] LABS: CALCIUM 9.4 mg/dL (8.5-10.1); CREATININE 0.9 mg/dL (0.6-1.0); GFR 67.1; POTASSIUM 4.5 mmol/L (3.5-5.1)
--- NOTE | 2020-07-06 18:13 | RAD ---
Study: XR CHEST 2V Indication: Extremity swelling. Comparison: 02/23/2014 Findings: The cardiomediastinal silhouette is within normal limits for size. Unchanged configuration of the hil a from the 2014 comparison. No confluent airspace infiltrate, pleural effusion or pneumothorax. Increased interstitial markings w ith a basilar predominance but very similar to the comparison. Impression: Basilar predominant increased interstitial markings could represent mild pulmonary edema however the appearance is essentially unchanged from the 2014 comparison. No pleural effusion and the cardiomedia stinal silhouette is within normal limits for size. Electronically signed by: AYSE CARLSON MD (07/06/2020 6:10 PM) [facility]
[2020-07-06 18:20] LABS: ALBUMIN 3.7 g/dL (3.4-5.0); MAGNESIUM 2.1 mg/dL (1.8-2.4); TOTAL BILIRUBIN 0.2 mg/dL (0.2-1.0); TOTAL PROTEIN 7.3 g/dL (6.4-8.2)
[2020-07-06 18:37] VITALS: BP 137/91
--- NOTE | 2020-07-06 18:52 | PHYS DOC ---
Past History Past Medical History: Anxiety, Bipolar, CAD, Depression, High Cholesterol, VA, Pneumonia, Other Additional Past Medical Histor: chronic right foot pain Past Surgical History: Other Additional Past Surgical Histo: stents 2017 x2, carpel tunnel, ankle pain Smoking: Cigarettes Alcohol Use: None Drug Use: Benzodiazepine, Marijuana, Opiates Adult General Chief Complaint Chief Complaint: HAND PROBLEM HPI HPI Patient is a 45-year-old female presents to the emergency department complaining of bilateral feet swelling and bilateral hand swelling with bilateral knee pain that started approximately 3 months ago and has progressively become worse. Patient states she has seen her orthopedic physician Dr. PERSAUD at [facility] and is currently being worked up in their office, patient states she is also seeing her primary care physician Dr. Yamilka Jacome at the [facility] and is being worked up for thyroid disorder. Patient states she does not have another appointment with her primary care physician until this coming Monday to review her thyroid disorder results. Patient also has noticed an increase incidence of bloody noses. Patient states she had a bloody nose yesterday that lasted for a few minutes at work. Patient states she is treating with saline nasal spray. Patient states she called her doctor today because her symptoms were becoming worse, her physician told her she was concerned about her heart and that she should come to the emergency department. Patient reports she is allergic to Toradol, the patient states her only medication at home is [id number] Tylenol. Patient states she suffers from a posttraumatic d issociative disorder. Review of Systems Review of Systems 14 body systems of review of systems have been reviewed. See HPI for pertinent positives and negative responses, otherwise all other systems are negative, nonpertinent or noncontributory. Current Medications Current Medications Current Medications Medications (Trade) Dose Ordered Sig/Manuel Start Time Stop Time Status Last Admin Dose Admin Acetaminophen/ Hydrocodone Bitart (Lortab 5/325) 1 tab STK-MED ONCE 07/06/20 17:35 07/06/20 17:35 DC Lorazepam (Ativan) 1 mg STK-MED ONCE 07/06/20 17:35 07/06/20 17:35 DC Allergies Allergies Allergies Coded Allergies Type Severity Reaction Last Updated Verified Vtxsckf-Hha-Wca Reductase Inhibitor Allergy Intermediate 12/05/17 Yes ketorolac Allergy Intermediate 12/05/17 Yes Physical Exam Physical Exam Constitutional: Well developed, well nourished, no acute distress, non-toxic appearance. Patient very anxious during physical exam, standing and walking about the room, patient has a medical service animal/dog with her. HENT: Normocephalic, atraumatic, bilateral external ears normal, oropharynx moist, no oral exudates, nose normal. No drooling, no trismus appreciated, there is a lesion on the left lateral side of her tongue that she states has been there for 2 weeks. Eyes: PERRLA, EOMI, conjunctiva normal, no discharge. Neck: Normal range of motion, no tenderness, supple, no stridor. Cardiovascular:Heart rate regular rhythm, no murmur, heart sounds S1-S2 to auscultation. Lungs & Thorax: Bilateral breath sounds clear to auscultation all lung madsen, no adventitious lung sounds appreciated. Abdomen: Bowel sounds normal, soft, no tenderness, no masses, no pulsatile masses. Skin: Warm, dry, no erythema, no rash. Back: No tenderness, no CVA tenderness. Extremities: No tenderness, no cyanosis, no clubbing, ROM intact, no edema. Full AROM/PROM of bilateral knees, no crepitus appreciated, no swelling appreciated, no deformities appreciated, no areas of ecchymosis appreciated, distal cap refill less 2 seconds, +2 dorsalis pedis/posterior tibial pulses. Neurologic: Alert and oriented X 3, normal motor function, normal sensory function, no focal deficits noted. Psychologic: Affect anxious, judgement normal, mood normal. Current Patient Data Vital Signs Vital Signs Date Time Temp Pulse Resp B/P (MAP) Pulse Ox O2 Delivery O2 Flow Rate FiO2 07/06/20 17:38 16 Room Air 07/06/20 16:48 96.8 102 158/90 (112) 100 Lab Results Laboratory Tests Test 07/06/20 17:41 White Blood Count 8.6 x10^3/uL Red Blood Count 4.76 x10^6/uL Hemoglobin 13.8 g/dL Hematocrit 41.8 % Mean Corpuscular Volume 88 fL Mean Corpuscular Hemoglobin 29 pg Mean Corpuscular Hemoglobin Concent 33 g/dL Red Cell Distribution Width 14.1 % Platelet Count 377 x10^3/uL Neutrophils (%) (Auto) 41 % Lymphocytes (%) (Auto) 44 % Monocytes (%) (Auto) 11 % Eosinophils (%) (Auto) 4 % Basophils (%) (Auto) 1 % Neutrophils # (Auto) 3.5 x10^3uL Lymphocytes # (Auto) 3.8 x10^3/uL Monocytes # (Auto) 0.9 x10^3/uL Eosinophils # (Auto) 0.3 x10^3/uL Basophils # (Auto) 0.1 x10^3/uL Sodium Level 143 mmol/L Potassium Level 4.5 mmol/L Chloride Level 107 mmol/L Carbon Dioxide Level 26 mmol/L Anion Gap 10 Blood Urea Nitrogen 24 mg/dL Creatinine 0.9 mg/dL Estimated GFR (Cockcroft-Gault) 67.1 BUN/Creatinine Ratio 27 Glucose Level 101 mg/dL Calcium Level 9.4 mg/dL Phosphorus Level 5.0 mg/dL Magnesium Level 2.1 mg/dL Total Bilirubin 0.2 mg/dL Aspartate Amino Transf (AST/SGOT) 22 U/L Alanine Aminotransferase (ALT/SGPT) 30 U/L Alkaline Phosphatase 106 U/L Troponin I Quantitative < 0.017 ng/mL MI-Nnc-C-Type Natriuretic Peptide 65 pg/mL Total Protein 7.3 g/dL Albumin 3.7 g/dL Albumin/Globulin Ratio 1.0 Current Medications Medications (Trade) Dose Ordered Sig/Manuel Route PRN Reason Start Time Stop Time Status Last Admin Dose Admin Acetaminophen/ Hydrocodone Bitart (Lortab 5/325) 2 tab 1X ONCE PO 07/06/20 17:30 07/06/20 17:35 DC 07/06/20 17:38 2 TAB Lorazepam (Ativan) 1 mg 1X ONCE PO 07/06/20 17:30 07/06/20 17:35 DC 07/06/20 17:37 1 MG Lorazepam (Ativan) 1 mg STK-MED ONCE .ROUTE 07/06/20 17:35 07/06/20 17:35 DC Acetaminophen/ Hydrocodone Bitart (Lortab 5/325) 1 tab STK-MED ONCE .ROUTE 07/06/20 17:35 07/06/20 17:35 DC Laboratory Tests Test 07/06/20 17:41 White Blood Count 8.6 x10^3/uL (4.0-11.0) Red Blood Count 4.76 x10^6/uL (3.50-5.40) Hemoglobin 13.8 g/dL (12.0-15.5) Hematocrit 41.8 % (36.0-47.0) Mean Corpuscular Volume 88 fL (79-100) Mean Corpuscular Hemoglobin 29 pg (25-35) Mean Corpuscular Hemoglobin Concent 33 g/dL (31-37) Red Cell Distribution Width 14.1 % (11.5-14.5) Platelet Count 377 x10^3/uL (140-400) Neutrophils (%) (Auto) 41 % (31-73) Lymphocytes (%) (Auto) 44 % (24-48) Monocytes (%) (Auto) 11 % (0-9) H Eosinophils (%) (Auto) 4 % (0-3) H Basophils (%) (Auto) 1 % (0-3) Neutrophils # (Auto) 3.5 x10^3uL (1.8-7.7) Lymphocytes # (Auto) 3.8 x10^3/uL (1.0-4.8) Monocytes # (Auto) 0.9 x10^3/uL (0.0-1.1) Eosinophils # (Auto) 0.3 x10^3/uL (0.0-0.7) Basophils # (Auto) 0.1 x10^3/uL (0.0-0.2) Sodium Level 143 mmol/L (136-145) Potassium Level 4.5 mmol/L (3.5-5.1) Chloride Level 107 mmol/L (98-107) Carbon Dioxide Level 26 mmol/L (21-32) Anion Gap 10 (6-14) Blood Urea Nitrogen 24 mg/dL (7-20) H Creatinine 0.9 mg/dL (0.6-1.0) Estimated GFR (Cockcroft-Gault) 67.1 BUN/Creatinine Ratio 27 (6-20) H Glucose Level 101 mg/dL (70-99) H Calcium Level 9.4 mg/dL (8.5-10.1) Phosphorus Level 5.0 mg/dL (2.6-4.7) H Magnesium Level 2.1 mg/dL (1.8-2.4) Total Bilirubin 0.2 mg/dL (0.2-1.0) Aspartate Amino Transferase (AST) 22 U/L (15-37) Alanine Aminotransferase (ALT) 30 U/L (14-59) Alkaline Phosphatase 106 U/L (46-116) Troponin I Quantitative < 0.017 ng/mL (0-0.055) PJ-Jye-U-Type Natriuretic Peptide 65 pg/mL (0-124) Total Protein 7.3 g/dL (6.4-8.2) Albumin 3.7 g/dL (3.4-5.0) Albumin/Globulin Ratio 1.0 (1.0-1.7) EKG EKG EKG performed at 1731 by house respiratory therapy staff, shows a normal sinus rhythm without ectopy with a heart rate of 77 bpm, MN interval 0.136, QTc interval 0.461, no acute STEMI, no ACS, no acute ischemia appreciated, EKG interpreted by ED attending physician Dr. Wolff. Radiology/Procedures Radiology/Procedures PATIENT: TRA CARBAJAL MACCOUNT: [id number] : 1975 LOCATION: ER AGE: 45 SEX: F EXAM STATUS: REG ER ORD. PHYSICIAN: BALJINDER HALEY APRN REASON: EXTREMITY SWELLING PROCEDURE: CHEST PA & LATERAL Study: XR CHEST 2V Indication: Extremity swelling. Comparison: 02/23/2014 Findings: The cardiomediastinal silhouette is within normal limits for size. Unchanged configuration of the keila from the 2013 comparison. No confluent airspace infiltrate, pleural effusion or pneumothorax. Increased interstitial markings with a basilar predominance but very similar to the comparison. Impression: Basilar predominant increased interstitial markings could represent mild pulmonary edema however the appearance is essentially unchanged from the 2014 co mparison. No pleural effusion and the cardiomediastinal silhouette is within normal limits for size. Electronically signed by: AYSE CARLSON MD (07/06/2020 6:10 PM) [facility] DICTATED AND SIGNED BY: AYSE CARLSON MD DATE: 07/06/201807 CC: BALJINDER HALEY APRN; PCP,UNKNOWN ~MTH0 0 Heart Score C/O Chest Pain: No Risk Factors: Risk Factors: DM, Current or recent (<one month) smoker, HTN, HLP, family history of CAD, obesity. Risk Scores: Risk Factors: DM, Current or recent (<one month) smoker, HTN, HLP, family hi story of CAD, obesity. Course & Med Decision Making Course & Med Decision Making Pertinent Labs and Imaging studies reviewed. (See chart for details) 45-year-old female, vital signs reviewed, presents emergency department concerning bilateral hands feet swelling and bilateral knee pain. Physical examination concerning for thyroid disorder versus autoimmune disorder. Patient presentation very anxious, will order cardiopulmonary work-up related to patient's primary physician concerns, patient was asking for water pill or a medication to help decrease the fluid in her body. Pending results at this t marcellus. Patient will be given to 5/325 Addis for 10/10 pain, and 1 mg p.o. Ativan for anxiety. Lab work unremarkable, EKG unremarkable, the patient did not complain of chest pain, patient's BNP was negative, troponin negative, upon reevaluation of the patient, patient appearance no longer anxious. Discussed findings with patient, discussed need for patient to see her doctor this Monday for follow-up of thyroid disorder, also discussed with patient need to follow-up for possible autoimmune disorder as directed by her primary care physician. Discussed with patient need to continue work-up with her management specialist. Will give 6 tablets of 5/325 mg hydrocodone for pain and discomfort, will also give 4 tablets of 1 mg p.o. Ativan for anxiety. Dragon Disclaimer Dragon Disclaimer This electronic medical record was generated, in whole or in part, using a voice recognition dictation system. Departure Departure: Impression: Primary Impression: Bilateral hand swelling Additional Impression: Bilateral knee pain Disposition: 01 DC HOME SELF CARE/HOMELESS Condition: GOOD Referrals: PCP,UNKNOWN (PCP) Additional Instructions: Please take medications as prescribed, please keep your appointment with your primary care doctor will this Monday, please keep your follow-up appointments with your orthopedic surgeon. Return to the emergency department for worsening symptoms or other concerns. EMERGENCY DEPARTMENT GENERAL DISCHARGE INSTRUCTIONS Thank you for coming to [facility] (ED) today and trusting us with you care. We trust that you had a positivie experience in our Emergency Department. If you wish to speak to the department management, you may call the director at [phone]. YOUR FOLLOW UP INSTRUCTIONS ARE FOLLOWS: 1. Do you have a private Doctor? If you do not have a private doctor, please ask for a resource list of physicians or clinics that may be able to assist you with follow up care. 2. The Emergency Physician has interpreted your x-rays. The X-Ray specialist will also review them. If there is a change in the findings, you will be notified in 48 hours when at all possible. 3. A lab test or culture has been done, your results will be reviewed and you will be notified if you need a change in treatment. ADDITIONAL INSTRUCTIONS AND INFORMATION: 1. Your care today has been supervised by a physician who is specially trained in emergency care. Many problems require more than one evaluation for a complete diagnosis and treatment. We recommend that you schedule your follow up appointment as recommended to ensure complete treatment of you illness or injury. If you are unable to obtain follow up care and continue to have a problem, or if your condition worsens, we recommend that you return to the ED. 2. We are not able to safely determine your condition over the phone nor are we able to give sound medical advice over the phone. For these safety reasons, if you call for medical advice we will ask you to come to the ED for further evaluation. 3. If you have any questions regarding these discharge instructions please call the ED at [phone]. SAFETY INFORMATION: In the interest of safety, wellness, and injury prevention; we encourage you to wear your sealbelt, if you smoke; quite smoking, and we encourage family to use a protective helmet for bicycling and other sporting events that present an increased risk for head injury. IF YOUR SYMPTOMS WORSEN OR NEW SYMPTOMS DEVELOP, OR YOU HAVE CONCERNS ABOUT YOUR CONDITION; OR IF YOUR CONDITION WORSENS WHILE YOU ARE WAITING FOR YOUR FOLLOW UP APPOIN TMENT; EITHER CONTACT YOUR PRIMARY CARE DOCTOR, THE PHYSICIAN WHOSE NAME AND NUMBER YOU WERE GIVEN, OR RETURN TO THE ED IMMEDIATELY. Scripts Lorazepam (ATIVAN) 1 Mg Tablet 1 TAB PO BID for anxiety MDD 2 Tablet(s) for 2 Days, #4 TAB 0 Refills Prov: BALJINDER HALEY APRN 07/06/20 Hydrocodone Bit/Acetaminophen (HYDROCODONE-APAP 5-325 ) 1 Each Tablet 1 TAB PO PRN Q6HRS PRN for PAIN, #6 TAB Prov: BALJINDER HALEY APRN 07/06/20 Problem Qualifiers Additional Impression: Bilateral knee pain Chronicity: acute Qualified Codes: M25.561 - Pain in right knee; M25.562 - Pain in left knee BALJINDER HALEY APRN Jul 06, 2020 18:52
[2020-07-06] MEDS ORDERED: LORA-254 PO (19:19)
[2020-07-06] MEDS ORDERED: HYDR-2155 PO (19:19)
--- NOTE | 2020-07-07 06:43 | EKG ---
[address] [address] Test Date: 2020-07-06 Test Time: 17:31:20 Pat Name: TRA CARBAJAL Department: Room: Gender: F Community Relations Assistant: SAMIR : 1975 Requested By: BALJINDER HALEY Order Number: [id number] Reading MD: Measurements Intervals Fields Rate: 77 P: 41 AZ: 136 QRS: 26 QRSD: 90 T: 42 QT: 366 QTc: 416 Interpretive Statements SINUS RHYTHM NORMAL ECG RI6.02 No previous ECG available for comparison
== END 2020-07-06 19:30 | disposition home or self-care (01) ==
LOC: ER 15:31
DX: R22.33 Localized swelling, mass and lump, upper limb, bilateral (principal); M25.561 Pain in right knee; M25.562 Pain in left knee; F31.9 Bipolar disorder, unspecified; E78.00 Pure hypercholesterolemia, unspecified; I25.10 Atherosclerotic heart disease of native coronary artery without angina pectoris; I25.2 Old myocardial infarction; F17.210 Nicotine dependence, cigarettes, uncomplicated; G89.29 Other chronic pain; Z95.5 Presence of coronary angioplasty implant and graft; Z91.041 Radiographic dye allergy status; Z88.6 Allergy status to analgesic agent
CPT/HCPCS: 36415; 71046; 80053; 83735; 83880; 84100; 84484; 85025; 93005; 99285-25

== ENCOUNTER → 2020-08-20 | Outpatient (CLI) | payer MEDICAID ==
[~2020-08-20] MED LIST changes: +HYDR-2155 PO; +LORA-254 PO
--- NOTE | 2020-08-20 09:52 | RAD ---
CT MAXILLOFACIAL WITHOUT CONTRAST History: Reason: LEFT MAXILLARY SINUSITIS. HX OF MASTOIDITIS / Spl. Instructions: / History: Comparison: None. Technique: Noncontrast CT imaging was performed of the maxillofacial. Coronal and sagittal reconstruc tions were performed. Exposure: One or more of the following individualized dose reduction techniques were utilized for thi s examination: 1. Automated exposure control 2. Adjustment of the mA and/or kV according to patient size 3. Use of iterative reconstruction technique. Findings: Moderate left maxillary size mucosal thickening. Fluid within the left maxillary sinus. Small polyp w ithin the right inferior maxillary sinus. Partial opacification of left anterior ethmoid air cells. T he frontal and sphenoid sinuses are clear. Opacified left ostiomeatal unit. Patent right ostiomeatal unit. Patent frontoethmoidal recesses and s phenoid ostia. Right nasal septal deviation and spurring. Mastoid air cells are clear. No acute fracture. Agger nasi cell noted. Orbits are unremarkable. Imaged intracranial contents are unremarkable. Impression: 1. Left maxillary sinus disease with opacified drainage pathway, can be seen with acute sinusitis in the appropriate clinical setting. Electronically signed by: Jamie Ohara DO (08/20/2020 9:49 AM) [id number]
== END ==
LOC: CT 08:54
PROVIDERS: ATTEND Otolaryngology
DX: J32.0 Chronic maxillary sinusitis (principal)
CPT/HCPCS: 70486

== ENCOUNTER 2020-09-28 09:54 | Emergency (ER) | payer MEDICAID ==
[~2020-09-28] VITALS: Ht 165.1 cm; Wt 113.6 kg
[~2020-09-28 09:54] MED LIST changes: -OMEP40CA45 PO; +OMEP40CA7 PO
[2020-09-28] MEDS ORDERED: IOHEXOL 300 MG/ML 75 ML VIAL. IV ONE (10:30)
--- NOTE | 2020-09-28 10:31 | PHYS DOC ---
Past History Past Medical History: Anxiety, Bipolar, CAD, Depression, High Cholesterol, [place], Pneumonia, Other Additional Past Medical Histor: chronic right foot pain Past Surgical History: Other Additional Past Surgical Histo: stents 2017 x2, carpel tunnel, ankle pain Smoking: Cigarettes Additional Smoking Information: 1/2 PACK/DAY Alcohol Use: Rarely Drug Use: Benzodiazepine, Marijuana, Opiates Adult General Chief Complaint Chief Complaint: ABDOMINAL PAIN HPI HPI Patient is a 45-year-old presenting for abdominal pain. Onset was yesterday evening without any known exposure, recent sick contact or travel. Nothing known makes better, p.o. intake makes worse. Describes pain as sharp epigastric pain that does not radiate. Symptom severity is severe and has been constant since onset. She attempted to smoke marijuana yesterday evening without significant improvement in symptoms. Denies fever, vision change, chest pain, ripping or tearing sensation in chest, shortness of breath, cough, urinary symp toms. She does admit prior history of MO with unknown amount of stents, takes 81 mg aspirin daily Review of Systems Review of Systems Fourteen body systems of review of systems have been reviewed. See HPI for pertinent positives and negative responses, other patel all other systems are negative, non-pertinent or non-contributory Current Medications Current Medications Current Medications Medications (Trade) Dose Ordered Sig/Manuel Start Time Stop Time Status Last Admin Dose Admin Fentanyl Citrate (Fentanyl 2ml Vial) 75 mcg 1X ONCE 09/28/20 10:15 09/28/20 10:18 DC Iohexol (Omnipaque 300 Mg/ml) 75 ml 1X ONCE 09/28/20 10:30 09/28/20 10:31 Allergies Allergies Allergies Coded Allergies Type Severity Reaction Last Updated Verified [id number] Reductase Inhibitor Allergy Intermediate 12/05/17 Yes ketorolac Allergy Intermediate 12/05/17 Yes Physical Exam Physical Exam Constitutional: Well developed, well nourished, anxious appearing moaning on arrival and appears in pain but is non-toxic in appearance. HENT: Normocephalic, atraumatic, bilateral external ears normal, oropharynx moist, no oral exudates, nose normal. Eyes: PERRLA, EOMI, conjunctiva normal, no discharge. Neck: Normal range of motion, no tenderness, supple, no stridor. Cardiovascular: Heart rate regular, sinus rhythm, no murmurs rubs or gallops Lungs & Thorax: Bilateral breath sounds clear to auscultation Abdomen: Bowel sounds normal, soft, epigastric tenderness with guarding present, no rebound, no masses, no pulsatile masses. Nonsurgical abdomen, no peritoneal signs Skin: Warm, dry, no erythema, no rash. Back: No tenderness, no CVA tenderness. Extremities: No tenderness, no cyanosis, no clubbing, ROM intact, no edema. Neurologic: Alert and oriented X 3, grossly normal motor & sensory function, no focal deficits noted. Psychologic: Anxious affect and mood Current Patient Data Vital Signs Vital Signs Date Time Temp Pulse Resp B/P (MAP) Pulse Ox O2 Delivery O2 Flow Rate FiO2 09/28/20 09:55 97.4 89 24 152/118 (129) 99 Room Air Lab Results Laboratory Tests Test 09/28/20 10:02 09/28/20 10:05 Urine Collection Type Unknown Urine Color Yellow Urine Clarity Clear Urine pH 8.5 Urine Specific [place] 1.020 Urine Protein Neg Urine Glucose (UA) Neg mg/dL Urine Ketones (Stick) 15 mg/dL Urine Blood Neg Urine Nitrite Neg Urine Bilirubin Neg Urine Urobilinogen Dipstick 0.2 mg/dL Urine Leukocyte Esterase Neg Urine RBC 0 /HPF Urine WBC 0 /HPF Urine Bacteria 0 /HPF Urine Test Negative Urine Opiates Screen Neg Urine Methadone Screen Neg Urine Barbiturates Neg Urine Phencyclidine Screen Neg Urine Amphetamine/Methamphetamine Pos Urine Benzodiazepines Screen Neg Urine Cocaine Screen Neg Urine Cannabinoids Screen Pos Urine Ethyl Alcohol Neg White Blood Count 14.2 x10^3/uL Red Blood Count 5.20 x10^6/uL Hemoglobin 15.1 g/dL Hematocrit 45.5 % Mean Corpuscular Volume 87 fL Mean Corpuscular Hemoglobin 29 pg Mean Corpuscular Hemoglobin Concent 33 g/dL Red Cell Distribution Width 14.2 % Platelet Count 451 x10^3/uL Neutrophils (%) (Auto) 77 % Lymphocytes (%) (Auto) 18 % Monocytes (%) (Auto) 4 % Eosinophils (%) (Auto) 0 % Basophils (%) (Auto) 1 % Neutrophils # (Auto) 10.9 x10^3uL Lymphocytes # (Auto) 2.6 x10^3/uL Monocytes # (Auto) 0.6 x10^3/uL Eosinophils # (Auto) 0.1 x10^3/uL Basophils # (Auto) 0.1 x10^3/uL Sodium Level 139 mmol/L Potassium Level 4.7 mmol/L Chloride Level 103 mmol/L Carbon Dioxide Level 21 mmol/L Anion Gap 15 Blood Urea Nitrogen 14 mg/dL Creatinine 0.7 mg/dL Estimated GFR (Cockcroft-Gault) 89.7 BUN/Creatinine Ratio 20 Glucose Level 120 mg/dL Calcium Level 9.6 mg/dL Total Bilirubin 0.5 mg/dL Aspartate Amino Transf (AST/SGOT) 18 U/L Alanine Aminotransferase (ALT/SGPT) 24 U/L Alkaline Phosphatase 136 U/L Troponin I Quantitative < 0.017 ng/mL Total Protein 7.0 g/dL Albumin 3.9 g/dL Albumin/Globulin Ratio 1.3 Lipase 78 U/L Current Medications Medications (Trade) Dose Ordered Sig/Manuel Route PRN Reason Start Time Stop Time Status Last Admin Dose Admin Fentanyl Citrate (Fentanyl 2ml Vial) 75 mcg 1X ONCE IVP 09/28/20 10:15 09/28/20 10:18 DC 09/28/20 10:34 Iohexol (Omnipaque 300 Mg/ml) 75 ml 1X ONCE IV 09/28/20 10:30 09/28/20 10:31 DC 09/28/20 10:32 EKG EKG EKG ordered and interpreted by myself at 1055 hrs. as sinus rhythm at 67 bpm, unremarkable intervals, no axis deviation, nonspecific T wave change in lead aVL otherwise no acute ischemic signs, no STEMI Radiology/Procedures Radiology/Procedures INDICATION: Reason: EPIGASTRIC PAIN, NAUSEA X 2 DAYS, NO HX OF SURGERIES / Spl. Instructions: OMNI 300 75ML IV / History: . COMPARISON: CT chest from February 2014.. TECHNIQUE: Axial CT images obtained through the abdomen and pelvis with contrast. One or more of the following individualized dose reduction techniques were utilized for this examination: 1. Automated exposure control; 2. Adjustment of the mA and/or kV according to patient size; 3. Use of iterative reconstruction technique. FINDINGS: Abdominal aorta is not aneurysmal. Multifocal plaque scattered throughout the aorta. No intrahepatic bile duct dilation. Small fat-containing umbilical hernia. No peripancreatic fluid collection. Spleen unremarkable. No hydronephrosis. Urinary bladder partially distended. Nodule at the right adrenal gland measuring up to about 12 mm. Uterus is visualized. No periappendiceal inflammatory changes. No dilated loops of bowel to suggest obstruction. Wall thickening of the distal stomach and duodenum. Degenerative changes of the spine. Small amount haziness to the fat adjacent to the urinary bladder. IMPRESSION: * Wall thickening of the distal stomach as well as the duodenum. Some possible causes would include duodenitis or duodenal ulcer with a lesion along the wall not excluded given the thickening. High density material is seen within the stomach and duodenum which could be from intraluminal content or calcifications. * Mild haziness the fat adjacent to the urinary bladder. Would correlate with symptoms to ensure that there is not a pathologic cause such as mild cystitis * Right adrenal gland nodule which is incompletely characterized. Likely benign since it was likely present in 2013. Electronically signed by: Lazaro Spring MD (09/28/2020 11:17 AM) [id number] Heart Score C/O Chest Pain: No HEART Score for Chest Pain: HEART Score for Chest Pain Response (Comments) Value History Slighlty/Non-Suspicious 0 ECG Normal 0 Age >45 - < 65 1 Risk Factors 1 or 2 Risk Factors 1 Troponin < Normal Limit 0 Total 2 Risk Factors: Risk Factors: DM, Current or recent (<one month) smoker, HTN, HLP, family history of CAD, obesity. Risk Scores: Risk Factors: DM, Current or recent (<one month) smoker, HTN, HLP, family history of CAD, obesity. Course & Med Decision Making Course & Med Decision Making ABCs unremarkable. I disclosed entirety of ER findings and discussed most likely diagnosis of unspecified upper abdominal pain. I disclosed potential diagnoses of duodenitis versus methamphetamine ingestion/use versus cannabis abuse. Patient adamantly denies any methamphetamine use or p.o. ingestion. I disclosed all findings such as concerning intraluminal contents, again denies any methamphetamine abuse whatsoever. I discussed low likelihood of any emergent or surgical issues and little indication for further diagnostic work-up in ER and/or need for hospital admission. As such, I stressed need for close outpatient follow-up to review today's ER visit and continued supportive care with new prescription for Protonix and bowel rest. Strict return precautions were also discussed at length with good understanding by patient. Patient voiced understanding and agreement with the plan. Patient knows to come back for repeat evaluation if concerning signs or symptoms present prior to outpatient follow- up. Hemodynamically stable, ambulatory and well-appearing at time of disposition. Dragon Disclaimer Dragon Disclaimer This electronic medical record was generated, in whole or in part, using a voice recognition dictation system. Departure Departure: Impression: Primary Impression: Nonspecific abdominal pain Disposition: HOME / SELF CARE / HOMELESS Condition: STABLE Referrals: PCP,NO (PCP) Patient Instructions: Abdominal Pain (Nonspecific) Additional Instructions: You have been evaluated in the Emergency Department today for abdominal pain. Your evaluation was not suggestive of any emergent condition requiring medical intervention at this time. However, some abdominal problems make take more time to appear. Therefore, it is important for you to watch for any new symptoms or worsening of your current condition. Please take prescribed proton pump inhibitor medications that should help with your stomach issues. As discussed, please contact your primary care physician immediately after your departure to review need for close outpatient follow-up for repeat evaluation and GI referral Return to the Emergency Department if you experience worsening pain, persistent fevers greater than 100.4, recurrent vomiting, blood in vomit, blood in stool, dark tarry stool, chest pain, difficulty breathing, or any other concerning symptoms. Scripts Pantoprazole Sodium (PROTONIX) 40 Mg Tablet.dr 1 TAB PO DAILY for DUODENITIS, #30 TAB 0 Refills Prov: OSIEL ROA DO 09/28/20 OSIEL ROA DO Sep 28, 2020 10:31
[2020-09-28 10:35] LABS: BASO # 0.1 x10^3/uL (0.0-0.2); BASO % 1 % (0-3); EOS # 0.1 x10^3/uL (0.0-0.7); EOS % 0 % (0-3); HEMATOCRIT 45.5 % (36.0-47.0); HEMOGLOBIN 15.1 g/dL (12.0-15.5); LYMPH # 2.6 x10^3/uL (1.0-4.8); LYMPH % 18 % (24-48); MEAN CORPUSCULAR HEMOGLOBIN 29 pg (25-35); MEAN CORPUSCULAR HGB CONC 33 g/dL (31-37); MEAN CORPUSCULAR VOLUME 87 fL (79-100); MONO # 0.6 x10^3/uL (0.0-1.1); MONO % 4 % (0-9); NEUT # 10.9 x10^3uL (1.8-7.7); NEUT % 77 % (31-73); PLATELET COUNT 451 x10^3/uL (140-400); RED CELL DISTRIBUTION WIDTH 14.2 % (11.5-14.5); WHITE BLOOD COUNT 14.2 x10^3/uL (4.0-11.0)
[2020-09-28 10:45] LABS: BARBITURATES NEG (NEG); BENZODIAZEPINES NEG (NEG); BILIRUBIN,URINE NEG (NEG); CANNABINOIDS POS (NEG); CLARITY,URINE CLEAR; COCAINE NEG (NEG); COLOR,URINE YELLOW; GLUCOSE,URINE NEG (NEG); METHADONE NEG (NEG); OPIATES NEG (NEG); PHENCYCLIDINE NEG (NEG)
[2020-09-28 10:46] LABS: ALBUMIN 3.9 g/dL (3.4-5.0); ALBUMIN/GLOBULIN RATIO 1.3 (1.0-1.7); CALCIUM 9.6 mg/dL (8.5-10.1); CREATININE 0.7 mg/dL (0.6-1.0); GFR 89.7; POTASSIUM 4.7 mmol/L (3.5-5.1); TOTAL BILIRUBIN 0.5 mg/dL (0.2-1.0)
[2020-09-28 10:46] LABS: BACTERIA,URINE 0 /HPF (0-FEW); NITRITE,URINE NEG (NEG); RBC,URINE 0 /HPF (0-2); UROBILINOGEN,URINE 0.2 mg/dL (0.2 mg/dL); WBC,URINE 0 /HPF (0-4)
[2020-09-28 10:49] LABS: AMPHETAMINE/METHAMPHETAMINE POS (NEG)
[2020-09-28 11:19] LABS: U PREG PATIENT NEGATIVE (NEG)
--- NOTE | 2020-09-28 11:20 | RAD ---
INDICATION: Reason: EPIGASTRIC PAIN, NAUSEA X 2 DAYS, NO HX OF SURGERIES / Spl. Instructions: OMNI 30 0 75ML IV / History: . COMPARISON: CT chest from February 2014.. TECHNIQUE: Axial CT images obtained through the abdomen and pelvis with contrast. One or more of the following individualized dose reduction techniques were utilized for this examinat ion: 1. Automated exposure control; 2. Adjustment of the mA and/or kV according to patient size; 3 . Use of iterative reconstruction technique. FINDINGS: Abdominal aorta is not aneurysmal. Multifocal plaque scattered throughout the aorta. No intrahepatic bile duct dilation. Small fat-containing umbilical hernia. No peripancreatic fluid collection. Spleen unremarkable. No hydronephrosis. Urinary bladder partially distended. Nodule at the right adrenal gland measuring up to about 12 mm. Uterus is visualized. No periappendiceal inflammatory changes. No dilated loops of bowel to suggest obstruction. Wall thickening of the distal stomach and duodenum. Degenerative changes of the spine. Small amount haziness to the fat adjacent to the urinary bladder. IMPRESSION: * Wall thickening of the distal stomach as well as the duodenum. Some possible causes would include duodenitis or duodenal ulcer with a lesion along the wall not excluded given the thickening. High den sity material is seen within the stomach and duodenum which could be from intraluminal content or jennifer cifications. * Mild haziness the fat adjacent to the urinary bladder. Would correlate with symptoms to ensure anuja t there is not a pathologic cause such as mild cystitis * Right adrenal gland nodule which is incompletely characterized. Likely benign since it was likely present in 2013. Electronically signed by: Lazaro Spring MD (09/28/2020 11:17 AM) [facility]
[2020-09-28 11:57] VITALS: BP 160/79
[2020-09-28] MEDS ORDERED: PANTOPRAZOLE IV 40 MG VIAL. IVP ONE (12:15)
[2020-09-28] MEDS ORDERED: PANT40TA3 PO (12:16)
--- NOTE | 2020-09-29 21:27 | EKG ---
[address] [address] Test Date: 2020-09-28 Test Time: 10:50:58 Pat Name: TRA CARBAJAL Department: Room: Gender: F [employer] Management Specialist: : [id number] Requested By: OSIEL ROA Order Number: [id number] Reading MD: Measurements Intervals [place] Rate: 67 P: 38 SD: 138 QRS: 38 QRSD: 102 T: 67 QT: 424 QTc: 451 Interpretive Statements SINUS RHYTHM QRS(T) CONTOUR ABNORMALITY CONSIDER INFERIOR MYOCARDIAL DAMAGE T ABNORMALITY IN HIGH LATERAL LEADS ABNORMAL ECG RI6.02 No previous ECG available for comparison
== END 2020-09-28 12:40 | disposition home or self-care (01) ==
LOC: ER 09:54
DX: R10.13 Epigastric pain (principal); E78.5 Hyperlipidemia, unspecified; F17.210 Nicotine dependence, cigarettes, uncomplicated; Z32.02 Encounter for pregnancy test, result negative
CPT/HCPCS: 36415; 74177; 80053; 80307; 81001; 81025; 83690; 84484; 85025; 93005; 96374; 96375; 99285; C9113; J3010; Q9967

== ENCOUNTER 2021-01-04 19:49 | Emergency (ER) | payer MEDICAID ==
[~2021-01-04] VITALS: Ht 165.1 cm; Wt 113.6 kg
[~2021-01-04 19:49] MED LIST changes: +PANT40TA3 PO
[2021-01-04 20:30] VITALS: BP 158/97
[2021-01-04] MEDS ORDERED: MUPI15CR8 TP (20:51)
[2021-01-04] MEDS ORDERED: AMOX1TAB61 PO (20:51)
--- NOTE | 2021-01-04 20:56 | PHYS DOC ---
Past History Past Medical History: Anxiety, Bipolar, CAD, Depression, High Cholesterol, [place], Pneumonia, Other Additional Past Medical Histor: chronic right foot pain Past Surgical History: Other Additional Past Surgical Histo: stents 2017 x2, carpel tunnel, ankle pain Smoking: Cigarettes Alcohol Use: Rarely Drug Use: Benzodiazepine, Marijuana, Opiates General Adult EDM: Chief Complaint: COUGH HPI: HPI: Patient is a 45-year-old female who presents to the ER for a 1 month history of facial pain, nasal congestion and nonproductive cough. Patient rates her facial pain 8 out of 10. She has been taking DayQuil, NyQuil, Tylenol, ibuprofen, nasal sprays and Robitussin without any relief in symptoms. Patient reports she is a chronic cough because she is a smoker. Patient denies shortness of breath, chest pain, sore throat, fevers, sick exposures. She is unvaccinated for COVID- 19. Review of Systems: Review of Systems: 14 body systems of the review of systems have been reviewed. See HPI for pe rtinent positive and negative responses, otherwise all other systems are negative, nonpertinent or noncontributory Allergies: Allergies: Allergies Coded Allergies Type Severity Reaction Last Updated Verified ketorolac Allergy Intermediate 12/05/17 Yes Physical Exam: PE: Constitutional: Well developed, well nourished, no acute distress, non-toxic appearance. [] HENT: Normocephalic, atraumatic, bilateral external ears normal, oropharynx moist, no oral exudates, nose normal, frontal, ethmoid and maxillary sinus tenderness with palpation. [] Eyes: PERRL, EOMI, conjunctiva normal, no discharge. [] Neck: Normal range of motion, no stridor Cardiovascular:Heart rate regular rhythm, no murmur [] Lungs & Thorax: Bilateral breath sounds clear to auscultation [] Abdomen: Bowel sounds normal, soft, no tenderness, no masses, no pulsatile masses. [] Skin: Warm, dry, no erythema, no rash. [] Back: Normal range of motion Extremities: No tenderness, no cyanosis, no clubbing, ROM intact, no edema. [] Neurologic: Alert and oriented X 3, normal motor function, normal sensory fun ction, no focal deficits noted. [] Psychologic: Affect normal, judgement normal, mood normal. [] EKG: EKG: [] Radiology/Procedures: Radiology/Procedures: [] Heart Score: C/O Chest Pain: N/A Risk Factors: Risk Factors: DM, Current or recent (<one month) smoker, HTN, HLP, family history of CAD, obesity. Risk Scores: Score 0 - 3: 2.5% MACE over next 6 weeks - Discharge Home Score 4 - 6: 20.3% MACE over next 6 weeks - Admit for Clinical Observation Score 7 - 10: 72.7% MACE over next 6 weeks - Early Invasive Strategies Course & Med Decision Making: Course & Med Decision Making Pertinent Labs and Imaging studies reviewed. (See chart for details) Patient is a 45-year-old female who presents with a 1 month history of facial pain and nasal congestion. Patient was noted to be tender with palpation to sinuses. Due to patient's nasal congestion and cough, she will be tested for COVID-19. She is instructed to self isolate until she receives these results. Patient states that she has been frequently using nasal sprays. I discussed with her the adverse effects of overusing nasal spray such as nasal mucosa irritation and perforation. Patient states that she has been applying bacitracin ointment with a Q-tip to her nose to help with the irritation and is requesting mupirocin ointment. Patient will be discharged home with an antibiotic to treat sinusitis and mupirocin ointment. Patient advised to follow-up with her primary care provider. Patient given her first dose of antibiotic in the ER. I discussed with patient all findings and diagnostic testing as well as the need to follow-up with PCP for further evaluation and treatment or return to the ER if any new or worsening symptoms. Strict return precautions were also discussed at length. Patient voiced understanding and agreement with the plan. Patient is hemodynamically stable at the time of disposition. Dragon Disclaimer: DragCartiHeal Disclaimer: This electronic medical record was generated, in whole or in part, using a voice recognition dictation system. Departure Departure: Impression: Primary Impression: Sinusitis Qualified Codes: J01.00 - Acute maxillary sinusitis, unspecified Disposition: HOME / SELF CARE / HOMELESS Condition: GOOD Referrals: PCP,NO (PCP) Patient Instructions: Sinusitis Additional Instructions: You were seen in the ER today for facial pain along with nasal congestion and a cough. You were tested for COVID-19 and will be notified of your results when they become available in approximately 2 days. Please self isolate until you receive these results. You are being diagnosed with sinusitis. You are prescribed an antibiotic and given your first dose in the ER. Please start and finish it completely. You are also being discharged home with an antibacterial ointment that you can use for your nose. As we discussed, frequent use of nasal sprays can be detrimental and cause nasal mucosa irritation and perforation. I would try to decrease your intranasal sprays and discontinue them. Follow-up w ith your primary care provider within 3 days regarding your ER visit. Please return to the ER if you develop shortness of breath, chest pain, high fevers refractory to treatment or any new or worsening concerns. EMERGENCY DEPARTMENT GENERAL DISCHARGE INSTRUCTIONS Thank you for coming to [facility] (ED) today and trusting us with you care. We trust that you had a positivie experience in our Emergency Department. If you wish to speak to the department management, you may call the director at [phone]. YOUR FOLLOW UP INSTRUCTIONS ARE FOLLOWS: 1. Do you have a private Doctor? If you do not have a private doctor, please ask for a resource list of physicians or clinics that may be able to assist you with follow up care. 2. The Emergency Physician has interpreted your x-rays. The X-Ray specialist will also review them. If there is a change in the findings, you will be notified in 48 hours when at all possible. 3. A lab test or culture has been done, your results will be reviewed and you will be notified if you need a change in treatment. ADDITIONAL INSTRUCTIONS AND INFORMATION: 1. Your care today has been supervised by a physician who is specially trained in emergency care. Many problems require more than one evaluation for a complete diagnosis and treatment. We recommend that you schedule your follow up appointment as recommended to ensure complete treatment of you illness or injury. If you are unable to obtain follow up care and continue to have a problem, or if your condition worsens, we recommend that you return to the ED. 2. We are not able to safely determine your condition over the phone nor are we able to give sound medical advice over the phone. For these safety reasons, if you call for medical advice we will ask you to come to the ED for further evaluation. 3. If you have any questions regarding these discharge instructions please call the ED at [phone]. SAFETY INFORMATION: In the interest of safety, wellness, and injury prevention; we encourage you to wear your sealbelt, if you smoke; quite smoking, and we encourage family to use a protective helmet for bicycling and other sporting events that present an increased risk for head injury. IF YOUR SYMPTOMS WORSEN OR NEW SYMPTOMS DEVELOP, OR YOU HAVE CONCERNS ABOUT YOUR CONDITION; OR IF YOUR CONDITION WORSENS WHILE YOU ARE WAITING FOR YOUR FOLLOW UP APPOINTMENT; EITHER CONTACT YOUR PRIMARY CARE DOCTOR, THE PHYSICIAN WHOSE NAME AND NUMBER YOU WERE GIVEN, OR RETURN TO THE ED IMMEDIATELY. Scripts Mupirocin Calcium (MUPIROCIN) 15 Gm Cream..g. 1 AMELIA TP BID for nasal irritation for 10 Days, #30 GM 0 Refills Prov: SHARLA BARNETT APRN 01/04/21 Amoxicillin/Potassium Clav (AUGMENTIN 875-125 TABLET) 1 Each Tablet 1 TAB PO BID for sinusitis for 10 Days, #20 TAB 0 Refills Prov: SHARLA BARNETT APRN 01/04/21 SHARLA BARNETT APRN Jan 04, 2021 20:56
[2021-01-04] MEDS ORDERED: AMOXICILLIN/K CLAV 875/125MG TABLET. PO ONE (21:00)
== END 2021-01-04 22:05 | disposition home or self-care (01) ==
LOC: ER 19:49
DX: J01.00 Acute maxillary sinusitis, unspecified (principal); F41.9 Anxiety disorder, unspecified; F31.9 Bipolar disorder, unspecified; I25.10 Atherosclerotic heart disease of native coronary artery without angina pectoris; E78.00 Pure hypercholesterolemia, unspecified; I25.2 Old myocardial infarction; F17.210 Nicotine dependence, cigarettes, uncomplicated; Z20.822 Contact with and (suspected) exposure to COVID-19; Z88.8 Allergy status to other drugs, medicaments and biological substances
CPT/HCPCS: 99283; C9803; U0003

== ENCOUNTER 2021-01-09 23:30 | Emergency (ER) | payer MEDICARE, MEDICAID ==
[~2021-01-09] VITALS: Ht 165.1 cm; Wt 113.6 kg
[~2021-01-09 23:30] MED LIST changes: +AMOX1TAB61 PO; +MUPI15CR8 TP
[2021-01-09 23:35] VITALS: BP 133/97
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
[2021-01-10] MEDS ORDERED: oxyCODONE/APAP 5/325 1 TAB TABLET PO ONE ×2 (01:30)
[2021-01-10] MEDS ORDERED: DIPH,PERTUSS(ACELL),TET VAC/PF 0.5 ML SYRINGE. VAX IM ONE (03:30)
== END 2021-01-10 01:30 | disposition home or self-care (01) ==
LOC: ER 23:30
DX: S02.2XXA Fracture of nasal bones, initial encounter for closed fracture (principal); S01.112A Laceration without foreign body of left eyelid and periocular area, initial encounter; F41.9 Anxiety disorder, unspecified; F31.9 Bipolar disorder, unspecified; I25.10 Atherosclerotic heart disease of native coronary artery without angina pectoris; E78.00 Pure hypercholesterolemia, unspecified; I25.2 Old myocardial infarction; F17.210 Nicotine dependence, cigarettes, uncomplicated; F43.10 Post-traumatic stress disorder, unspecified; Z88.8 Allergy status to other drugs, medicaments and biological substances; Y08.89XA Assault by other specified means, initial encounter; Y93.89 Activity, other specified; Y92.89 Other specified places as the place of occurrence of the external cause; Y99.8 Other external cause status
CPT/HCPCS: 12011; 21315; 70450; 70486; 96372; 99285; J3010

== ENCOUNTER 2021-04-14 12:47 | Emergency (ER) | payer MEDICARE, MEDICAID ==
[~2021-04-14] VITALS: Ht 165.1 cm; Wt 120.4 kg
--- NOTE | 2021-04-14 13:18 | EKG ---
[address] [address] Test Date: 2021-04-14 Test Time: 12:55:05 Pat Name: TRA CARBAJAL Department: Room: Gender: F Methods And Procedures Analyst: SAMIR : 1975 Requested By: MARYANN FISHER Order Number: [id number] Reading MD: Shane Mcdonald Measurements Intervals [place] Rate: 91 P: 45 CA: 122 QRS: 20 QRSD: 104 T: 59 QT: 352 QTc: 435 Interpretive Statements SINUS RHYTHM Electronically Signed On 04-17-2021 16:32:47 ASSISTANT TECHNICIAN by Shane Mcdonald
--- NOTE | 2021-04-14 13:24 | RAD ---
EXAM: Chest, single view. HISTORY: Chest pain. COMPARISON: 07/06/2020 FINDINGS: A frontal view of the chest is obtained. There is no infiltrate, effusion or pneumothorax. There is a stable cardiac silhouette. IMPRESSION: No acute pulmonary finding. Electronically signed by: Della Ware MD (04/14/2021 1:21 PM) [id number]
--- NOTE | 2021-04-14 13:34 | PHYS DOC ---
Past History Past Medical History: Anxiety, Bipolar, CAD, Depression, High Cholesterol, [place], Pneumonia, Other Additional Past Medical Histor: PTSD Past Surgical History: Other Additional Past Surgical Histo: D&C, LEFT ANKLE, CARPAL TUNNEL Smoking: Cigarettes Alcohol Use: Rarely Drug Use: Benzodiazepine, Marijuana, Opiates General Adult EDM: Chief Complaint: ANXIETY/PANIC ATTACK HPI: HPI: 46-year-old female presents with chest pain. This started yesterday. It is a central heaviness that is moderate to severe. It waxes and wanes but has not gone away. Patient admits that there may be an emotional component. She is very anxious and upset. She states having a panic attack yesterday. She has a recent loss in the family and is not dealing with it well. She is not on d epression or anxiety medication. She has an appointment with her doctor tomorrow to discuss this. Her primary care physician recommended she come to the emergency room due to her chest pain. The patient has a history of heart attack and states this pain feels different. She denies fever or chills. Review of Systems: Review of Systems: Constitutional: Denies fever or chills Eyes: Denies change in visual acuity HENT: Denies nasal congestion or sore throat Respiratory: Denies cough or shortness of breath Cardiovascular: Chest pain GI: Denies abdominal pain, nausea, vomiting, bloody stools or diarrhea : Denies dysuria Musculoskeletal: Denies back pain or joint pain Integument: Denies rash Neurologic: Denies headache, focal weakness or sensory changes Endocrine: Denies polyuria or polydipsia Lymphatic: Denies swollen glands Psychiatric: Anxious Allergies: Allergies: Allergies Coded Allergies Type Severity Reaction Last Updated Verified ketorolac Allergy Intermediate 12/05/17 Yes Physical Exam: PE: Constitutional: Well developed, well nourished, morbidly obese, no acute distress, non-toxic appearance. [] HENT: Normocephalic, atraumatic, bilateral external ears normal, oropharynx moist, no oral exudates, nose normal. [] Eyes: PERRLA, EOMI, conjunctiva normal, no discharge. [] Neck: Normal range of motion, no tenderness, supple, no stridor. [] Cardiovascular: Heart rate 91, regular rhythm, no murmur [] Lungs & Thorax: Bilateral breath sounds clear to auscultation [] Abdomen: Bowel sounds normal, soft, no tenderness, no masses, no pulsatile masses. [] Skin: Warm, dry, no erythema, no rash. [] Back: No tenderness, no CVA tenderness. [] Extremities: No tenderness, no cyanosis, no clubbing, ROM intact, no edema. [] Neurologic: Alert and oriented X 3, normal motor function, normal sensory function, no focal deficits noted. [] Psychologic: Affect tearful, judgement normal, mood extremely anxious. [] Current Patient Data: Vital Signs: Vital Signs Date Time Temp Pulse Resp B/P (MAP) Pulse Ox O2 Delivery O2 Flow Rate FiO2 04/14/21 13:05 98.5 102 20 169/114 (132) 98 Room Air EKG: EKG: Sinus rhythm, rate 91, normal axis, no ST elevation or depression. [] Radiology/Procedures: Radiology/Procedures: [] Impressions: EXAM: Chest, single view. HISTORY: Chest pain. COMPARISON: 07/06/2020 FINDINGS: A frontal view of the chest is obtained. There is no infiltrate, effusion or pneumothorax. There is a stable cardiac silhouette. IMPRESSION: No acute pulmonary finding. Electronically signed by: Della Ware MD (04/14/2021 1:21 PM) [id number] DICTATED AND SIGNED BY: DELLA WARE MD DATE: 04/14/21 1321 CC: MARYANN FISHER DO; DELLA PEGUERO MD ~MTH0 0 Heart Score: C/O Chest Pain: Yes HEART Score for Chest Pain: HEART Score for Chest Pain Response (Comments) Value History Slighlty/Non-Suspicious 0 ECG Normal 0 Age >45 - < 65 1 Risk Factors >3 Risk Factors or Hx CAD 2 Troponin < Normal Limit 0 Total 3 Risk Factors: Risk Factors: DM, Current or recent (<one month) smoker, HTN, HLP, family history of CAD, obesity. Risk Scores: Score 0 - 3: 2.5% MACE over next 6 weeks - Discharge Home Score 4 - 6: 20.3% MACE over next 6 weeks - Admit for Clinical Observation Score 7 - 10: 72.7% MACE over next 6 weeks - Early Invasive Strategies Course & Med Decision Making: Course & Med Decision Making Pertinent Labs and Imaging studies reviewed. (See chart for details) The patient's EKG is negative for acute findings. Her labs are unremarkable. Her troponin is negative. Her chest x-ray is negative for acute findings. The patient is very anxious. Have given her 2 mg of Ativan IV. She will follow-up with her primary care physician tomorrow. She is stable for discharge at this time. [] Dragon Disclaimer: Dragon Disclaimer: This electronic medical record was generated, in whole or in part, using a voice recognition dictation system. Departure Departure: Impression: Primary Impression: Panic attack Additional Impression: Chest pain Disposition: HOME / SELF CARE / HOMELESS Condition: STABLE Referrals: DELLA PEGUERO MD (PCP) Patient Instructions: Anxiety and Panic Attacks, [id number], Chest Pain (Nonspecific), [id number] MARYANN FISHER DO Apr 14, 2021 13:34
[2021-04-14 14:23] LABS: BASO # 0.1 x10^3/uL (0.0-0.2); BASO % 1 % (0-3); EOS # 0.1 x10^3/uL (0.0-0.7); EOS % 1 % (0-3); HEMATOCRIT 42.7 % (36.0-47.0); HEMOGLOBIN 14.1 g/dL (12.0-15.5); LYMPH # 3.4 x10^3/uL (1.0-4.8); LYMPH % 29 % (24-48); MEAN CORPUSCULAR HEMOGLOBIN 29 pg (25-35); MEAN CORPUSCULAR HGB CONC 33 g/dL (31-37); MEAN CORPUSCULAR VOLUME 88 fL (79-100); MONO % 8 % (0-9); NEUT % 60 % (31-73); PLATELET COUNT 483 x10^3/uL (140-400); RED BLOOD COUNT 4.88 x10^6/uL (3.50-5.40); RED CELL DISTRIBUTION WIDTH 15.8 % (11.5-14.5); WHITE BLOOD COUNT 11.6 x10^3/uL (4.0-11.0)
[2021-04-14 14:56] LABS: CALCIUM 9.1 mg/dL (8.5-10.1); CREATININE 0.8 mg/dL (0.6-1.0); GFR 76.6
[2021-04-14 15:08] LABS: ALBUMIN 3.8 g/dL (3.4-5.0); TOTAL BILIRUBIN 0.2 mg/dL (0.2-1.0); TOTAL PROTEIN 7.6 g/dL (6.4-8.2)
[2021-04-14] MEDS ORDERED: LORA-254 PO (15:28)
[2021-04-14 15:32] VITALS: BP 136/87
== END 2021-04-14 15:33 | disposition home or self-care (01) ==
LOC: ER 12:47
DX: F41.0 Panic disorder [episodic paroxysmal anxiety] (principal); R07.89 Other chest pain; F41.9 Anxiety disorder, unspecified; F31.9 Bipolar disorder, unspecified; I25.10 Atherosclerotic heart disease of native coronary artery without angina pectoris; E78.00 Pure hypercholesterolemia, unspecified; I25.2 Old myocardial infarction; F17.210 Nicotine dependence, cigarettes, uncomplicated; Z88.8 Allergy status to other drugs, medicaments and biological substances
CPT/HCPCS: 36415; 71045; 80053; 84484; 85025; 93005; 96374; 99285; J2060